=== PATIENT | female | born 1990 | race Caucasian/White ===

== ENCOUNTER 2016-09-22 14:25 | Emergency (ER) | payer OTHER ==
[~2016-09-22] VITALS: Ht 165.1 cm; Wt 86.0 kg
[~2016-09-22 14:25] MED LIST: PRENTAB26 PO; SERT-234 PO
[2016-09-22 14:28] VITALS: TEMP 36.9; Ht 165.1 cm; Wt 86.0 kg
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
[2016-09-22 15:02] LABS: HEMATOCRIT 34.1 % (37-47); MEAN CELL VOLUME 80.2 fL (80-100); MEAN CORPUSCULAR HEMOGLOBIN 25.6 pg (25-34); MEAN PLATELET VOLUME 9.5 fL (7.4-10.4); PLATELET COUNT 328 K/uL (130-400); RED BLOOD COUNT 4.25 M/uL (4.2-5.4); WHITE BLOOD COUNT 11.13 K/uL (4.8-10.8)
[2016-09-22 15:17] LABS: BUN/CREATININE RATIO 17.5 (10-20); CALCIUM 8.6 mg/dl (8.5-10.1); CREATININE 0.62 mg/dl (0.60-1.20); POTASSIUM 3.8 mmol/L (3.5-5.1)
[2016-09-22 15:19] LABS: ALB/GLOB RATIO 0.7 (0.9-2); MANUAL MICROSCOPIC REQUIRED? NO; REVIEW REQ? NO; URINE APPEARANCE CLOUDY (CLEAR); URINE BILIRUBIN NEG (NEG); URINE COLOR YELLOW; URINE EPITHELIAL CELL AUTO >30 /lpf (0-5); URINE NITRITE NEG (NEG); URINE SPECIFIC GRAVITY 1.008 (1.000-1.030); UROBILINOGEN NEG (NEG); ZZUR CULT IF INDIC CLEAN CATCH YES
[2016-09-22 15:28] LABS: BASO % 0.4 %; BASO ABS # 0.04 K/uL (0-0.2); COMPLETE YES; EOS % 2.9 %; IG% 0.2 %; LYMPH % 25.4 %; LYMPH ABS # 2.83 K/uL (1.2-3.4); MONO % 6.8 %; NEUT % 64.3 %
[2016-09-22 16:59] VITALS: BP 115/65; PULSE 76; O2SAT 96
[2016-09-22] MEDS ORDERED: NITR1CAP16 PO (17:02)
[2016-09-26] MEDS ORDERED: SERT1TAB88 PO (15:14)
== END 2016-09-22 17:13 | disposition home or self-care (01) ==
LOC: C.EDB 14:28 → C.EDC 17:13
DX: N39.0 Urinary tract infection, site not specified (principal); D64.9 Anemia, unspecified; R19.7 Diarrhea, unspecified; R19.5 Other fecal abnormalities; Z93.3 Colostomy status

== ENCOUNTER 2016-09-24 17:50 | Inpatient (IN) | payer OTHER ==
[~2016-09-24] VITALS: Ht 165.1 cm; Wt 85.7 kg
[~2016-09-24 17:50] MED LIST changes: +NITR1CAP16 PO; -PRENTAB26 PO; -SERT-234 PO
[2016-09-24] MEDS ORDERED: ONDANSETRON INJ 2 MG/ML 2 ML VIAL IV STA (21:03)
--- NOTE | 2016-09-24 21:12 | EMERGENCY ROOM VISIT NOTE ---
ED Visit Note First contact with patient: 20:32 Resident Physician Supervision Note: I was present with Dr. Max Greer during the history and exam. I discussed the case with the resident and agree with the findings and plan as documented in the note. Any exceptions or clarifications are listed here: None Documented By: Sina Calloway
[2016-09-24 21:20] LABS: BASO % 0.2 %; BASO ABS # 0.02 K/uL (0-0.2); COMPLETE YES; EOS % 2.2 %; IG% 0.1 %; LYMPH % 23.5 %; LYMPH ABS # 2.53 K/uL (1.2-3.4); MEAN CELL VOLUME 81.1 fL (80-100); MEAN CORPUSCULAR HEMOGLOBIN 26.5 pg (25-34); MEAN CORPUSCULAR HGB CONC 32.7 g/dl (32-36); MEAN PLATELET VOLUME 9.7 fL (7.4-10.4); PLATELET COUNT 326 K/uL (130-400); RED BLOOD COUNT 4.07 M/uL (4.2-5.4); WHITE BLOOD COUNT 10.75 K/uL (4.8-10.8)
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
[2016-09-24 21:45] LABS: ALT/SGPT 17 U/L (12-78); BLOOD UREA NITROGEN 9 mg/dl (7-18); BUN/CREATININE RATIO 13.7 (10-20); CALCIUM 8.7 mg/dl (8.5-10.1); CARBON DIOXIDE 27 mmol/L (21-32); CHLORIDE 104 mmol/L (98-107); CREATININE 0.68 mg/dl (0.60-1.20); GLUCOSE 75 mg/dl (70-99); POTASSIUM 3.5 mmol/L (3.5-5.1); SODIUM 139 mmol/L (136-145)
[2016-09-24 21:48] LABS: ALKALINE PHOSPHATASE 84 U/L (45-117); AST/SGOT 12 U/L (15-37)
[2016-09-24] MEDS ORDERED: KETOROLAC TROMETHAMINE 30 MG/ML VIAL IV STA (21:48)
[2016-09-24 22:18] LABS: URINE APPEARANCE CLOUDY (CLEAR); URINE BILIRUBIN NEG (NEG); URINE COLOR YELLOW; URINE EPITHELIAL CELL AUTO >30 /lpf (0-5); URINE NITRITE NEG (NEG); URINE SPECIFIC GRAVITY 1.008 (1.000-1.030); UROBILINOGEN NEG (NEG); ZZUR CULT IF INDIC CLEAN CATCH YES
[2016-09-24 22:27] LABS: MANUAL MICROSCOPIC REQUIRED? NO; REVIEW REQ? NO
[2016-09-24] MEDS ORDERED: LEVAQUIN 750MG / 150ML D5W IV ONE (23:30)
[2016-09-24] MEDS ORDERED: OPTIRAY 320 IV PRN (23:45)
[2016-09-25] MEDS ORDERED: HYDROmorphone INJ 0.5 MG/0.5 ML SYR IV STA (00:52)
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
[2016-09-25] MEDS ORDERED: ONDANSETRON INJ 2 MG/ML 2 ML VIAL IV PRN (02:00)
[2016-09-25] MEDS ORDERED: MAGNESIUM HYDROXIDE SUSP 30 ML UDC PO PRN (02:00)
[2016-09-25] MEDS ORDERED: ACETAMINOPHEN 325 MG TAB PO PRN (02:00)
[2016-09-25] MEDS ORDERED: ALUMINUM/MAGNESIUM/SIMETH (MAALOX MAX) 30 ML UDC PO PRN (02:00)
[2016-09-25] MEDS ORDERED: KETOROLAC TROMETHAMINE 15 MG/ML VIAL IM PRN (02:15)
[2016-09-25 02:31] VITALS: O2SAT 100
[2016-09-25 02:40] VITALS: Ht 165.1 cm; Wt 85.7 kg
[2016-09-25] MEDS ORDERED: POLYETHYLENE (MIRALAX) 17 GM PACK PO PRN (03:00)
[2016-09-25] MEDS: SODIUM CHLORIDE 0.9% 1000ML 1,000 ML IV SCH ×2 (03:09→14:07)
[2016-09-25] MEDS: KETOROLAC TROMETHAMINE 15 MG/ML VIAL IV. PRN ×2 (04:30→14:09)
--- NOTE | 2016-09-25 07:24 | DIAGNOSTIC IMAGING REPORT ---
CT OF THE ABDOMEN AND PELVIS WITH CONTRAST CLINICAL HISTORY: Acute abdominal pain. COMPARISON STUDY: CT of the abdomen and pelvis October 18, 2015. TECHNIQUE: Following IV administration of 115 mL of Optiray-320, axial images of the abdomen and pelvis were obtained from the lung bases to the proximal femurs. Images were reviewed in the axial, sagittal, and coronal planes. IV contrast was administered without complication. Oral contrast was administered. CT DOSE: 629.72 mGy.cm FINDINGS: Lung bases are clear. There is no pneumatosis, free air or portal venous gas. The liver, spleen, right kidney and pancreas are normal. 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 There is no hydronephrosis. A left lower quadrant descending end colostomy is noted. There is a rectosigmoid stump. There is moderate wall thickening of the mid to distal descending colon including the portion of the colon within the ostomy. There is moderate adjacent infiltration and mild lymphadenopathy which is likely reactive. There is no free air or abscess. There is also mild wall thickening of the rectosigmoid stump. A 4.2 cm cystic right ovarian lesion is present. The appendix is normal. Cannulated screws within the proximal left femur noted. There is flattening right femoral head with right hip joint space narrowing and cystic change within the right femoral head. IMPRESSION: 1. Moderate wall thickening and associated infiltration and fluid involving the mid to distal descending colon, including the portion of the colon within the left lower quadrant end colostomy. The findings represent a moderate to severe nonspecific colitis. Differential considerations include an infectious etiology or inflammatory etiology such as inflammatory bowel disease. Mild wall thickening of the rectosigmoid stump. 2. No bowel obstruction. 3. Normal appendix. 4. 4.2 cm right ovarian cyst. 5. Flattening of the right femoral head with marked right hip joint space narrowing and cystic change within the right femur. Electronically signed by: Sridhar Mcneil M.D. 09/25/2016 7:22 AM Dictated Date/Time: 09/25/2016 7:14 AM
[2016-09-25 07:44] VITALS: BP 81/43; PULSE 70; TEMP 36.7; O2SAT 98
[2016-09-25 07:46] VITALS: BP 88/56
[2016-09-25] MEDS ORDERED: METRONIDAZOLE / NSS 500 MG in PREMIXED NSS 100 ML IV SCH (09:00)
[2016-09-25 16:00] VITALS: BP 108/75; PULSE 70; TEMP 36.5; O2SAT 98
--- NOTE | 2016-09-25 17:21 | Discharge Instructions ---
Discharge Instructions Date of Service Sep 25, 2016. Admission Reason for Admission: Bloody Diarrhea Discharge Discharge Diagnosis / Problem: Ulcerative colitis Discharge Goals Goal(s): Learn about illness Activity Recommendations Activity Limitations: resume your previous activity Lifting Limitations: none Exercise/Sports Limitations: none May Resume Sexual Activity: when tolerated Driving or Machine Use: no limitations . Instructions / Follow-Up Instructions / Follow-Up Follow up with GI as outpatient Current Hospital Diet Patient's current hospital diet: AHA Diet (Heart Healthy), Low Sodium Diet (2gm Na) Discharge Diet Recommended Diet: Low Sodium Diet (2gm Na) Pending Studies Studies pending at discharge: no Medical Emergencies . Who to Call and When: Medical Emergencies: If at any time you feel your situation is an emergency, please call 911 immediately. . Non-Emergent Contact Non-Emergency issues call your: Primary Care Provider Call Non-Emergent contact if: you have a fever, your pain is not controlled . Past History Medical & Surgical History: (1) UTI (urinary tract infection) (2) Bloody diarrhea . "Provider Documentation" section prepared by Moreno Juan. VTE Core Measure Inpt VTE Proph given/why not?: SCD's, Contraindicated
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
[2016-09-25 17:39] VITALS: BP 108/75; PULSE 70; TEMP 36.5; O2SAT 98
[2016-09-26] MEDS ORDERED: LEVOFLOXACIN / D5W 750 MG in PREMIXED IN D5W 150 ML IV SCH
[2016-09-26] MEDS ORDERED: LEVOFLOXACIN 500 MG TAB PO SCH (11:00)
[2016-09-26] MEDS ORDERED: SERT1TAB88 PO (15:14)
== END 2016-09-25 19:10 | disposition home or self-care (01) | DRG 392 ==
LOC: ENRESERVTM → ENRESERVDT → C.EDB 17:52 → C.3E 09-25 02:00
PROVIDERS: ADMIT Hospitalist; ATTEND Hospitalist
DX: R19.7 Diarrhea, unspecified (principal); N39.0 Urinary tract infection, site not specified; Z93.3 Colostomy status; Z87.891 Personal history of nicotine dependence; Z83.3 Family history of diabetes mellitus; Z82.49 Family history of ischemic heart disease and other diseases of the circulatory system

== ENCOUNTER 2016-09-26 15:52 | Observation (INO) | payer OTHER ==
[~2016-09-26] VITALS: Ht 165.1 cm; Wt 85.0 kg
[~2016-09-26 15:52] MED LIST changes: -NITR1CAP16 PO; +SERT1TAB88 PO
[2016-09-26] MEDS ORDERED: SODIUM CHLORIDE 0.9% 1000ML 1,000 ML IV STA (17:32)
[2016-09-26] MEDS ORDERED: ONDANSETRON INJ 2 MG/ML 2 ML VIAL IV STA (17:32)
[2016-09-26] MEDS ORDERED: HYDROmorphone INJ 1 MG/ML SYR IV STA (17:32)
[2016-09-26 17:46] LABS: HEMATOCRIT 33.4 % (37-47); MEAN CELL VOLUME 79.3 fL (80-100); MEAN CORPUSCULAR HEMOGLOBIN 25.7 pg (25-34); MEAN CORPUSCULAR HGB CONC 32.3 g/dl (32-36); MEAN PLATELET VOLUME 9.7 fL (7.4-10.4); PLATELET COUNT 330 K/uL (130-400); RED BLOOD COUNT 4.21 M/uL (4.2-5.4); WHITE BLOOD COUNT 10.62 K/uL (4.8-10.8)
[2016-09-26 18:02] LABS: MANUAL MICROSCOPIC REQUIRED? YES; URINE APPEARANCE CLEAR (CLEAR); URINE BILIRUBIN NEG (NEG); URINE COLOR YELLOW; URINE NITRITE NEG (NEG); UROBILINOGEN NEG (NEG)
[2016-09-26 18:03] LABS: PREG INTERNAL NEGATIVE QC NEG CLEAR BACKGROUND; PREG INTERNAL POSITIVE QC POS CONTROL LINE
[2016-09-26 18:04] LABS: ALT/SGPT 14 U/L (12-78); BLOOD UREA NITROGEN 5 mg/dl (7-18); BUN/CREATININE RATIO 9.3 (10-20); CALCIUM 8.8 mg/dl (8.5-10.1); CARBON DIOXIDE 23 mmol/L (21-32); CHLORIDE 105 mmol/L (98-107); CREATININE 0.58 mg/dl (0.60-1.20); GLUCOSE 81 mg/dl (70-99); POTASSIUM 3.6 mmol/L (3.5-5.1); SODIUM 138 mmol/L (136-145)
[2016-09-26 18:06] LABS: REVIEW REQ? NO
[2016-09-26 18:07] LABS: ALKALINE PHOSPHATASE 66 U/L (45-117); AST/SGOT 10 U/L (15-37)
[2016-09-26 18:08] LABS: BASO % 0.1 %; BASO ABS # 0.01 K/uL (0-0.2); COMPLETE YES; DOHLE BODIES 1+; EOS % 1.6 %; IG% 0.2 %; LYMPH % 17.8 %; LYMPH ABS # 1.89 K/uL (1.2-3.4); MONO % 8.2 %; NEUT % 72.1 %
[2016-09-26 18:14] LABS: URINE BACTERIA 1+ (NEG); URINE RBC 0-4 /hpf (0-4); ZZUR CULT IF INDIC CLEAN CATCH YES
[2016-09-26] MEDS ORDERED: CEFTRIAXONE SOD INJ 1 GM ADDVIAL IV STA (18:31)
[2016-09-26] MEDS ORDERED: PANTOprazole INJ 80 MG in DEXTROSE 5% 100ML IV SCH (19:30)
[2016-09-26] MEDS ORDERED: PANTOprazole INJ 40 MG in DEXTROSE 5% 100ML IV SCH (19:45)
[2016-09-26] MEDS ORDERED: ACETAMINOPHEN 325 MG TAB PO PRN (21:00)
[2016-09-26] MEDS ORDERED: ONDANSETRON INJ 2 MG/ML 2 ML VIAL IV PRN (21:00)
[2016-09-26] MEDS ORDERED: ZOLPIDEM TARTRATE 5 MG TAB PO PRN (21:00)
[2016-09-26] MEDS ORDERED: IV FLUIDS COMPLETED PRN (21:45)
[2016-09-26] MEDS: MoRPHine SULFATE 4 MG/ML 1 ML CARP\\VIAL IV PRN (21:47)
[2016-09-26 21:51] LABS: HEMATOCRIT 30.6 % (37-47)
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
[2016-09-26 22:14] VITALS: BP 101/65; PULSE 65; TEMP 37.3; O2SAT 97; Ht 165.1 cm; Wt 85.0 kg
--- NOTE | 2016-09-26 22:24 | History and Physical ---
History & Physical Date & Time of Service: Sep 26, 2016 at 22:25 Chief Complaint: Blood In Stool, Intense Abdominal Pain Primary Care Physician: Zoltan Khan MD History of Present Illness Source: patient The patient is a 26-year-old female who presents to the emergency department with complaint of abdominal pain. She had been admitted into the hospital on September 25, and was advised to have a colonoscopy by Dr. Fraser, however, the patient reported that she had to go home and would get testing done as an outpatient. While in the hospital, her symptoms have resolved. She then developed worsening abdominal discomfort after discharge, and noted blood in stool through her colostomy, and return to the emergency department for assessment tonight. Past Medical/Surgical History Medical Problems: (1) Bronchitis Status: Resolved Surgical Problems: (1) Colostomy in place Status: Chronic Family History Diabetes mellitus Hypertension Social History Smoking Status: Unknown if Ever Smoked Smokeless Tobacco Use: No Alcohol Use: none Drug Use: none Marital Status: in relationship Occupational Status: employed Multi-Drug Resistant Organisms History of MDRO: No Allergies Coded Allergies: Sulfa Antibiotics (Verified Allergy, Unknown, HIVES, 09/24/16) Home Medications Scheduled Sertraline HCl (Sertraline HCl), 75 MG PO DAILY Review of Systems The patient denies chest pain, palpitations, shortness of breath, cough, lower extremity swelling, vision change, hearing change, sore throat, chills, sweats, weight change, fatigue, blood in urine or stool, dysuria, urinary frequency or urgency, lightheadedness, dizziness, headache, memory loss, rash, abnormal bruising or bleeding, imbalance, focal or generalized weakness, numbness or tingling in arms or legs, arthralgias or myalgias, back or neck pain, night sweats, or allergy symptoms. The review of systems is otherwise negative other than for that already noted above, and at least 10 systems have been reviewed. Physical Exam Vital Signs Date Time Temp Pulse Resp B/P Pulse Ox O2 Delivery O2 Flow Rate FiO2 09/26/16 22:10 90 12 108/78 97 09/26/16 21:00 98 16 118/78 98 09/26/16 19:00 98 14 118/74 98 09/26/16 18:45 84 15 101/59 100 Room Air 09/26/16 16:08 37.1 108 18 118/69 100 Room Air The patient is awake, well-developed and adequately nourished, alert and oriented 3, normocephalic and atraumatic, lying in bed and in no acute distress. HEENT--PERRL, EOMI, mucous membranes and oropharynx dry. Neck--supple, no JVD or bruits, thyroid normal, trachea midline, no adenopathy. Heart--normal S1 and S2, no extra beats, no murmurs, rubs or gallops. Lungs--clear bilaterally with good air movement, no respiratory distress, no accessory muscle use. Abdomen--normal bowel sounds and soft, generalized vague tenderness, nondistended, no hernias or masses, no organomegaly. Extremities--no cyanosis, clubbing or edema. There are good distal pulses b/l. Dermatologic--normal skin turgor, normal color, warm and dry, no abnormal lymph nodes, no rash. Neurologic--cranial nerves II through XII grossly intact, motor and sensory examination normal. Rheumatologic--normal range of motion, nontender, muscles and joints. Psychiatric--normal affect. Diagnostics Laboratory Results Results Past 24 Hours Test 09/26/16 00:00 09/26/16 17:15 09/26/16 21:38 Range/Units Urine Color YELLOW Urine Appearance CLEAR CLEAR Urine pH 6.0 4.5-7.5 Urine Specific [place] 1.010 1.000-1.030 Urine Protein NEG NEG Urine Glucose (UA) NEG NEG Urine Ketones 3+ NEG Urine Occult Blood 1+ NEG Urine Nitrite NEG NEG Urine Bilirubin NEG NEG Urine Urobilinogen NEG NEG Urine Leukocyte Esterase LARGE NEG Urine RBC 0-4 0-4 /hpf Urine WBC 10-30 0-5 /hpf Urine Epithelial Cells 5-10 0-5 /lpf Urine Bacteria 1+ NEG Urine Test NEG NEG White Blood Count 10.62 4.8-10.8 K/uL Red Blood Count 4.21 4.2-5.4 M/uL Hemoglobin 10.8 9.7 12.0-16.0 g/dL Hematocrit 33.4 30.6 37-47 % Mean Corpuscular Volume 79.3 80-100 fL Mean Corpuscular Hemoglobin 25.7 25-34 pg Mean Corpuscular Hemoglobin Concent 32.3 32-36 g/dl Platelet Count 330 130-400 K/uL Mean Platelet Volume 9.7 7.4-10.4 fL Neutrophils (%) (Auto) 72.1 % Lymphocytes (%) (Auto) 17.8 % Monocytes (%) (Auto) 8.2 % Eosinophils (%) (Auto) 1.6 % Basophils (%) (Auto) 0.1 % Neutrophils # (Auto) 7.66 1.4-6.5 K/uL Lymphocytes # (Auto) 1.89 1.2-3.4 K/uL Monocytes # (Auto) 0.87 0.11-0.59 K/uL Eosinophils # (Auto) 0.17 0-0.5 K/uL Basophils # (Auto) 0.01 0-0.2 K/uL RDW Standard Deviation 40.5 36.4-46.3 fL RDW Coefficient of Variation 14.2 11.5-14.5 % Immature Granulocyte % (Auto) 0.2 % Immature Granulocyte # (Auto) 0.02 0.00-0.02 K/uL Dohle Bodies 1+ Sodium Level 138 136-145 mmol/L Potassium Level 3.6 3.5-5.1 mmol/L Chloride Level 105 98-107 mmol/L Carbon Dioxide Level 23 21-32 mmol/L Anion Gap 10.0 3-11 mmol/L Blood Urea Nitrogen 5 7-18 mg/dl Creatinine 0.58 0.60-1.20 mg/dl Est Creatinine Clear Calc Drug Dose 159.6 ml/min Estimated GFR () 148.5 Estimated GFR (Non- 128.1 BUN/Creatinine Ratio 9.3 10-20 Random Glucose 81 70-99 mg/dl Calcium Level 8.8 8.5-10.1 mg/dl Total Bilirubin 0.4 0.2-1 mg/dl Direct Bilirubin < 0.1 0-0.2 mg/dl Aspartate Amino Transf (AST/SGOT) 10 15-37 U/L Alanine Aminotransferase (ALT/SGPT) 14 12-78 U/L Alkaline Phosphatase 66 45-117 U/L Total Protein 7.5 6.4-8.2 gm/dl Albumin 3.0 3.4-5.0 gm/dl Lipase 74 73-393 U/L Microbiology Results 09/26/16 Urine Culture, Received Pending Diagnostic Radiology Patient Name: TOBIN NASH Unit Number: [id number] Dictated: 09/25/16713 Transcribed: 09/25/16713 JA Printed Date/Time: [~ rep prt dt]/[~ rep prt tm] [~ rep ct labl] - [~ rep ct ivnm] [facility] [place] [address] Dictated: 09/25/16713 Transcribed: 09/25/16713 JA Printed Date/Time: [~ rep prt dt]/[~ rep prt tm] [~ rep ct labl] - [~ rep ct ivnm] CT OF THE ABDOMEN AND PELVIS WITH CONTRAST CLINICAL HISTORY: Acute abdominal pain. COMPARISON STUDY: CT of the abdomen and pelvis October 18, 2015. TECHNIQUE: Following IV administration of 115 mL of Optiray-320, axial images of the abdomen and pelvis were obtained from the lung bases to the proximal femurs. Images were reviewed in the axial, sagittal, and coronal planes. IV contrast was administered without complication. Oral contrast was administered. CT DOSE: 629.72 mGy.cm FINDINGS: Lung bases are clear. There is no pneumatosis, free air or portal venous gas. The liver, spleen, right kidney and pancreas are normal. 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 There is no hydronephrosis. A left lower quadrant descending end colostomy is noted. There is a rectosigmoid stump. There is moderate wall thickening of the mid to distal descending colon including the portion of the colon within the ostomy. There is moderate adjacent infiltration and mild lymphadenopathy which is likely reactive. There is no free air or abscess. There is also mild wall thickening of the rectosigmoid stump. A 4.2 cm cystic right ovarian lesion is present. The appendix is normal. Cannulated screws within the proximal left femur noted. There is flattening right femoral head with right hip joint space narrowing and cystic change within the right femoral head. IMPRESSION: 1. Moderate wall thickening and associated infiltration and fluid involving the mid to distal descending colon, including the portion of the colon within the left lower quadrant end colostomy. The findings represent a moderate to severe nonspecific colitis. Differential considerations include an infectious etiology or inflammatory etiology such as inflammatory bowel disease. Mild wall thickening of the rectosigmoid stump. 2. No bowel obstruction. 3. Normal appendix. 4. 4.2 cm right ovarian cyst. 5. Flattening of the right femoral head with marked right hip joint space narrowing and cystic change within the right femur. Electronically signed by: Sridhar Mcneil M.D. 09/25/2016 7:22 AM Dictated Date/Time: 09/25/2016 7:14 AM The status of this report is Signed. Draft = Not yet reviewed or approved by Radiologist. Signed = Reviewed and approved by Radiologist. <AttendingPhy>Lalo Vega M.D.</AttendingPhy> <FamilyPhy>Zoltan Khan MD</FamilyPhy> <PrimaryPhy>Zoltan Khan MD</PrimaryPhy> <UnitNumber> [id number]</UnitNumber> <VisitNumber>[id number]</VisitNumber> <PatientName> TOBIN NASH</PatientName> <DateOfBirth>1990</DateOfBirth> <Location> [facility]</Location> <ServiceDate>09/24/16</ServiceDate> <MNE>ESINDI</MNE> < OrderingPhy>Max Greer MD</OrderingPhy> <OrderingPhyMNE>f rep ord dr yates</ OrderingPhyMNE> <DictatingPhyMNE>f rep dict dr yates</DictatingPhyMNE> <CCListMNE> f rep ct trudy</CCListMNE> <AdmittingPhyMNE>f pt admit dr yates</AdmittingPhyMNE> < AttendingPhyMNE>f pt attend dr yates</AttendingPhyMNE> <ConsultingPhyMNE>f pt consult dr yates</ConsultingPhyMNE> <FamilyPhyMNE>f pt fam dr yates</FamilyPhyMNE> <OtherPhyMNE>f pt other dr yates</OtherPhyMNE> < PrimaryPhyMNE>f pt prim care dr yates</PrimaryPhyMNE> <ReferringPhyMNE>f pt referring dr yates</ReferringPhyMNE> Impression Assessment and Plan Moderate to severe nonspecific colitis with hematochezia--the patient will be admitted to the medical floor. She'll be kept nothing by mouth and placed on IV fluids. We'll consult Dr. Fraser, from gastroenterology, who has seen her on September 25, and who had recommended colonoscopy at that time, to see if that continues to be his recommendation. We'll place on Zofran 4 mg IV every 6 hours when necessary, Protonix 40 mg IV daily, and morphine sulfate 2-4 mg IV every 2 hours when necessary. Depression--continue sertraline 75 mg by mouth daily. Level of Care Med/Surg Advanced Directives Existing Advance Directive: No Existing Living Will: No Existing Power of Safety Trainer: No Resuscitation Status FULL RESUSCITATION VTE Prophylaxis VTE Risk Assessment Done? Y/N: Yes Risk Level: Low Given or contraindicated: SCD's Social Service Consult None Apply
[2016-09-26] MEDS: NSS + 20MEQ KCL 1000ML 1,000 ML IV SCH (23:39)
[2016-09-26 23:40] VITALS: BP 107/67; PULSE 87; TEMP 37; O2SAT 97
[2016-09-27] MEDS: MoRPHine SULFATE 4 MG/ML 1 ML CARP\\VIAL IV PRN ×7 (00:37→22:01)
[2016-09-27] MEDS: PANTOprazole INJ 40 MG in DEXTROSE 5% 100ML IV SCH ×5 (00:53→20:36)
[2016-09-27 03:13] LABS: HEMATOCRIT 29.2 % (37-47); MEAN CELL VOLUME 79.6 fL (80-100); MEAN CORPUSCULAR HEMOGLOBIN 25.3 pg (25-34); MEAN CORPUSCULAR HGB CONC 31.8 g/dl (32-36); MEAN PLATELET VOLUME 8.8 fL (7.4-10.4); PLATELET COUNT 290 K/uL (130-400); RED BLOOD COUNT 3.67 M/uL (4.2-5.4); WHITE BLOOD COUNT 9.23 K/uL (4.8-10.8)
[2016-09-27 03:24] LABS: INR 1.1 (0.9-1.1); PARTIAL THROMBOPLASTIN RATIO 1.2; PROTHROMBIN TIME (PATIENT) 11.4 SECONDS (9.0-12.0)
[2016-09-27 03:37] LABS: ALKALINE PHOSPHATASE 54 U/L (45-117); ALT/SGPT 11 U/L (12-78); AST/SGOT 8 U/L (15-37); BLOOD UREA NITROGEN 3 mg/dl (7-18); BUN/CREATININE RATIO 4.8 (10-20); CALCIUM 7.8 mg/dl (8.5-10.1); CARBON DIOXIDE 25 mmol/L (21-32); CHLORIDE 109 mmol/L (98-107); CREATININE 0.65 mg/dl (0.60-1.20); GLUCOSE 84 mg/dl (70-99); POTASSIUM 3.5 mmol/L (3.5-5.1); SODIUM 141 mmol/L (136-145)
[2016-09-27 03:52] LABS: BASO % 0.2 %; BASO ABS # 0.02 K/uL (0-0.2); COMPLETE YES; EOS % 2.5 %; IG% 0.1 %; LYMPH % 34.1 %; LYMPH ABS # 3.15 K/uL (1.2-3.4); MONO % 11.3 %; NEUT % 51.8 %
[2016-09-27 07:07] VITALS: BP 108/66; PULSE 71; TEMP 36.9; O2SAT 95
[2016-09-27] MEDS: SERTRALINE HCL 50 MG TAB PO SCH (09:11)
[2016-09-27] MEDS: NSS + 20MEQ KCL 1000ML 1,000 ML IV SCH ×2 (09:11→18:35)
[2016-09-27 09:53] LABS: HEMATOCRIT 28.4 % (37-47)
--- NOTE | 2016-09-27 13:28 | Hospitalist Progress Note ---
Hospitalist Progress Note Date of Service Sep 27, 2016. Subjective Pt evaluation today including: conversation w/ patient, physical exam, chart review Medications Medications (Trade) Dose Ordered Sig/Lee Route Start Time Stop Time Status Last Admin Dose Admin Sodium Chloride (Nss 1000ml) 1,000 ml @ 999 mls/hr Q1H1M STAT IV 09/26/16 17:32 09/26/16 18:32 DC 09/26/16 17:46 999 MLS/HR Hydromorphone HCl (Dilaudid Inj) 1 mg NOW STAT IV 09/26/16 17:32 09/26/16 17:33 DC 09/26/16 17:47 1 MG Ondansetron HCl (Zofran Inj) 4 mg NOW STAT IV 09/26/16 17:32 09/26/16 17:33 DC 09/26/16 17:46 4 MG Ceftriaxone Sodium 1 gm 1 gm NOW STAT IV 09/26/16 18:31 09/26/16 18:32 DC 09/26/16 18:44 1 GM Pantoprazole Sodium 80 mg/ Dextrose 120 ml @ 480 mls/hr TODAY@1930 IV 09/26/16 19:30 09/26/16 19:44 DC 09/26/16 19:37 480 MLS/HR Pantoprazole Sodium/Dextrose (Protonix Inj/D5 100ml) 100 ml @ 20 mls/hr Q5H IV 09/26/16 19:45 09/27/16 00:44 DC 09/26/16 19:52 20 MLS/HR Sertraline HCl (Zoloft Tab) 75 mg QAM PO 09/27/16 09:00 10/27/16 08:59 09/27/16 09:11 75 MG Ondansetron HCl 4 mg 4 mg Q6H PRN IV 09/26/16 21:00 10/26/16 20:59 09/26/16 21:46 4 MG Potassium Chloride/Sodium Chloride (Nss + 20meq KCl 1000ml) 1,000 ml @ 100 mls/hr Q10H IV 09/26/16 23:00 10/26/16 22:59 09/27/16 09:11 100 MLS/HR Morphine Sulfate 4 mg 4 mg Q2H PRN IV 09/26/16 21:00 10/10/16 20:59 09/27/16 11:04 4 MG Pantoprazole Sodium/Dextrose (Protonix Inj/D5 100ml) 100 ml @ 20 mls/hr Q5H IV 09/27/16 01:00 10/27/16 00:59 09/27/16 11:03 20 MLS/HR Objective Vital Signs Date Time Temp Pulse Resp B/P Pulse Ox O2 Delivery O2 Flow Rate FiO2 09/27/16 08:00 Room Air 09/27/16 07:07 36.9 71 16 108/66 95 Room Air 09/26/16 23:45 Room Air 09/26/16 23:40 37.0 87 16 107/67 97 Room Air 09/26/16 22:14 37.3 65 20 101/65 97 Room Air 09/26/16 22:10 90 12 108/78 97 09/26/16 21:00 98 16 118/78 98 09/26/16 19:00 98 14 118/74 98 09/26/16 18:45 84 15 101/59 100 Room Air 09/26/16 16:08 37.1 108 18 118/69 100 Room Air Physical Exam General Appearance: WD/WN, no apparent distress Eyes: normal inspection, PERRL ENT: normal ENT inspection, hearing grossly normal Neck: supple, no adenopathy, thyroid normal Respiratory/Chest: chest non-tender, lungs clear, normal breath sounds Cardiovascular: regular rate, rhythm, no edema, no gallop Abdomen: normal bowel sounds, soft Extremities: normal range of motion Neurologic/Psychiatric: political science professor II-XII nml as tested, oriented x 3 Skin: normal color Laboratory Results Last 24 Hours Test 09/26/16 17:15 09/26/16 21:38 09/27/16 03:00 09/27/16 09:39 White Blood Count 10.62 K/uL 9.23 K/uL Red Blood Count 4.21 M/uL 3.67 M/uL Hemoglobin 10.8 g/dL 9.7 g/dL 9.3 g/dL 9.0 g/dL Hematocrit 33.4 % 30.6 % 29.2 % 28.4 % Mean Corpuscular Volume 79.3 fL 79.6 fL Mean Corpuscular Hemoglobin 25.7 pg 25.3 pg Mean Corpuscular Hemoglobin Concent 32.3 g/dl 31.8 g/dl Platelet Count 330 K/uL 290 K/uL Mean Platelet Volume 9.7 fL 8.8 fL Neutrophils (%) (Auto) 72.1 % 51.8 % Lymphocytes (%) (Auto) 17.8 % 34.1 % Monocytes (%) (Auto) 8.2 % 11.3 % Eosinophils (%) (Auto) 1.6 % 2.5 % Basophils (%) (Auto) 0.1 % 0.2 % Neutrophils # (Auto) 7.66 K/uL 4.78 K/uL Lymphocytes # (Auto) 1.89 K/uL 3.15 K/uL Monocytes # (Auto) 0.87 K/uL 1.04 K/uL Eosinophils # (Auto) 0.17 K/uL 0.23 K/uL Basophils # (Auto) 0.01 K/uL 0.02 K/uL RDW Standard Deviation 40.5 fL 40.5 fL RDW Coefficient of Variation 14.2 % 14.0 % Immature Granulocyte % (Auto) 0.2 % 0.1 % Immature Granulocyte # (Auto) 0.02 K/uL 0.01 K/uL Dohle Bodies 1+ Sodium Level 138 mmol/L 141 mmol/L Potassium Level 3.6 mmol/L 3.5 mmol/L Chloride Level 105 mmol/L 109 mmol/L Carbon Dioxide Level 23 mmol/L 25 mmol/L Anion Gap 10.0 mmol/L 7.0 mmol/L Blood Urea Nitrogen 5 mg/dl 3 mg/dl Creatinine 0.58 mg/dl 0.65 mg/dl Est Creatinine Clear Calc Drug Dose 159.6 ml/min 142.4 ml/min Estimated GFR () 148.5 143.0 Estimated GFR (Non- 128.1 123.4 BUN/Creatinine Ratio 9.3 4.8 Random Glucose 81 mg/dl 84 mg/dl Calcium Level 8.8 mg/dl 7.8 mg/dl Total Bilirubin 0.4 mg/dl 0.3 mg/dl Direct Bilirubin < 0.1 mg/dl < 0.1 mg/dl Aspartate Amino Transf (AST/SGOT) 10 U/L 8 U/L Alanine Aminotransferase (ALT/SGPT) 14 U/L 11 U/L Alkaline Phosphatase 66 U/L 54 U/L Total Protein 7.5 gm/dl 6.6 gm/dl Albumin 3.0 gm/dl 2.6 gm/dl Lipase 74 U/L Red Blood Cell Morphology Unremarkable Prothrombin Time 11.4 SECONDS Prothromb Time International Ratio 1.1 Activated Partial Thromboplast Time 32.4 SECONDS Partial Thromboplastin Ratio 1.2 Magnesium Level 2.0 mg/dl Assessment and Plan Moderate to severe nonspecific colitis with hematochezia--the patient will be admitted to the medical floor. She'll be kept nothing by mouth and placed on IV fluids. We'll consult Dr. Fraser, from gastroenterology, who has seen her on September 25, and who had recommended colonoscopy at that time, to see if that continues to be his recommendation. We'll place on Zofran 4 mg IV every 6 hours when necessary, Protonix 40 mg IV daily, and morphine sulfate 2-4 mg IV every 2 hours when necessary. Depression--continue sertraline 75 mg by mouth daily.
[2016-09-27 15:11] VITALS: BP 102/66; PULSE 109; TEMP 37.1; O2SAT 96
[2016-09-27 15:48] LABS: HEMATOCRIT 28.8 % (37-47)
[2016-09-27] MEDS ORDERED: LAVAGE SOLUTION 4000ML PO SCH (18:00)
[2016-09-27] MEDS ORDERED: NURSING VERBAL MED ORDER ONE (20:15)
[2016-09-27] MEDS: KETOROLAC TROMETHAMINE 30 MG/ML VIAL IV. PRN (20:36)
[2016-09-27 23:28] VITALS: BP 103/63; PULSE 85; TEMP 36.7; O2SAT 99
[2016-09-28] MEDS: PANTOprazole INJ 40 MG in DEXTROSE 5% 100ML IV SCH ×5 (01:31→22:15)
[2016-09-28] MEDS: MoRPHine SULFATE 4 MG/ML 1 ML CARP\\VIAL IV PRN ×6 (01:36→22:47)
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
[2016-09-28 03:31] LABS: HEMATOCRIT 25.7 % (37-47); MEAN CELL VOLUME 79.6 fL (80-100); MEAN CORPUSCULAR HEMOGLOBIN 26.3 pg (25-34); MEAN CORPUSCULAR HGB CONC 33.1 g/dl (32-36); MEAN PLATELET VOLUME 9.3 fL (7.4-10.4); PLATELET COUNT 263 K/uL (130-400); RED BLOOD COUNT 3.23 M/uL (4.2-5.4); WHITE BLOOD COUNT 8.03 K/uL (4.8-10.8)
[2016-09-28 03:36] LABS: INR 1.1 (0.9-1.1); PARTIAL THROMBOPLASTIN RATIO 1.3
[2016-09-28 03:43] LABS: BUN/CREATININE RATIO 4.6 (10-20); CALCIUM 7.4 mg/dl (8.5-10.1); CREATININE 0.57 mg/dl (0.60-1.20); MAGNESIUM 1.8 mg/dl (1.8-2.4); POTASSIUM 3.5 mmol/L (3.5-5.1)
[2016-09-28] MEDS: NSS + 20MEQ KCL 1000ML 1,000 ML IV SCH ×2 (04:18→16:11)
[2016-09-28 04:26] LABS: COMPLETE YES; EOSINOPHIL % 0.9 %; LYMPH ABS # 1.94 K/uL (1.2-3.4); LYMPHOCYTE % 24.1 %; VARIANT LYM ABS # 1.57 K/uL; VARIANT LYMPHOCYTE % 19.6 %
[2016-09-28 07:41] VITALS: BP 110/68; PULSE 65; TEMP 37; O2SAT 99
[2016-09-28 08:01] VITALS: BP 110/68; PULSE 65; PULSE 85; TEMP 37; O2SAT 99
[2016-09-28 08:04] VITALS: O2SAT 95; O2SAT 99
[2016-09-28 09:08] LABS: HEMATOCRIT 25.6 % (37-47)
[2016-09-28] MEDS: SERTRALINE HCL 50 MG TAB PO SCH (09:23)
--- NOTE | 2016-09-28 14:17 | Endo History and Physical ---
History & Physical Date of Service: Sep 28, 2016. Chief Complaint: GI bleed Referring Physician: Dr Vega History of Present Illness For colonoscopy Past Surgical History Hx Cardiac Surgery: No Hx Abdominal Surgery: No (colostomy, reconstruction surgery 2001) Hx Post-Op Nausea and Vomiting: No Hx Cancer Surgery: No Hx Thoracic Surgery: No Hx Orthopedic: No Hx Urinary Tract Surgery: No Social History Smoking Status: Unknown if Ever Smoked Smokeless Tobacco Use: No Hx Substance Use: Yes (see emr) Hx Alcohol Use: No Allergies Coded Allergies: Sulfa Antibiotics (Verified Allergy, Unknown, HIVES, 09/24/16) Current Medications Reported Home Medications Medications Dose Route/Sig Max Daily Dose Days Date Category Sertraline HCl 25 Mg Tab 75 Mg PO DAILY 09/22/16 Reported Vital Signs Weight (Kilograms): 85.000 Height (Feet): 5 Height (Inches): 5.00 Date Time Temp Pulse Resp B/P Pulse Ox O2 Delivery O2 Flow Rate FiO2 09/28/16 13:27 37.4 80 18 111/58 96 Room Air 77 09/28/16 08:04 99 Room Air 09/28/16 08:01 37.0 85 14 110/68 99 Room Air 65 09/28/16 07:45 Room Air 09/28/16 07:41 37.0 65 14 110/68 99 Room Air 09/27/16 23:28 36.7 85 15 103/63 99 Room Air 09/27/16 23:15 Room Air 09/27/16 15:45 Room Air 09/27/16 15:11 37.1 109 18 102/66 96 Room Air Physical Exam General Appearance: WD/WN Respiratory/Chest: Respiratory effort: no dyspnea Cardiovascular: Heart Auscultation: RRR Abdomen: Bowel Sounds: pertinent finding (colostomy) Assessment and Plan GI bleed for colonoscopy
[2016-09-28] MEDS ORDERED: MIDAZOLAM HCL 1 MG/ML 2ML VIAL ONE (14:27)
[2016-09-28] MEDS ORDERED: PROPOFOL IV EMULSION 10 MG/ML 20 ML VIAL IV ONE (14:28)
[2016-09-28] MEDS ORDERED: LIDOCAINE HCL 2% 2 ML VIAL (20MG/ML) ONE (14:28)
[2016-09-28] MEDS ORDERED: ONDANSETRON INJ 2 MG/ML 2 ML VIAL ONE (14:28)
--- NOTE | 2016-09-28 14:50 | Discharge Instructions ---
Endoscopy Patient Instructions Date / Procedure(s) Performed Sep 28, 2016. Allergy Information Coded Allergies: Sulfa Antibiotics (Verified Allergy, Unknown, HIVES, 09/24/16) Discharge Date / Findings Sep 28, 2016. Pancolitis Medication Instructions Restart Stopped Medication(s): resume meds Current Inpatient Medications Medications (Trade) Dose Ordered Sig/Lee Route Start Time Stop Time Status Last Admin Dose Admin Acetaminophen (Tylenol Tab) 650 mg Q4H PRN PO 09/26/16 21:00 10/26/16 20:59 Zolpidem Tartrate (Ambien Tab) 5 mg HSZ PRN PO 09/26/16 21:00 10/26/16 20:59 Sertraline HCl (Zoloft Tab) 75 mg QAM PO 09/27/16 09:00 10/27/16 08:59 09/28/16 09:23 75 MG Ondansetron HCl 4 mg 4 mg Q6H PRN IV 09/26/16 21:00 10/26/16 20:59 09/26/16 21:46 4 MG Potassium Chloride/Sodium Chloride (Nss + 20meq KCl 1000ml) 1,000 ml @ 100 mls/hr Q10H IV 09/26/16 23:00 10/26/16 22:59 09/28/16 04:18 100 MLS/HR Morphine Sulfate (MoRPHine SULFATE INJ) 2 mg Q2H PRN IV 09/26/16 21:00 10/10/16 20:59 Morphine Sulfate (MoRPHine SULFATE INJ) 4 mg Q2H PRN IV 09/26/16 21:00 10/10/16 20:59 09/28/16 11:42 4 MG Miscellaneous 1 ea 1 ea PRN PRN N/A 09/26/16 21:45 09/26/17 21:44 Pantoprazole Sodium/Dextrose (Protonix Inj/D5 100ml) 100 ml @ 20 mls/hr Q5H IV 09/27/16 01:00 10/27/16 00:59 09/28/16 11:44 20 MLS/HR Ketorolac Tromethamine (Toradol Inj) 30 mg Q6H PRN IV. 09/27/16 20:30 10/02/16 20:29 09/27/16 20:36 30 MG Provider Instructions Activity Restrictions - No exercising or heavy lifting for 24 hours. - Do not drink alcohol the day of the procedure. - Do not drive a car or operate machinery until the day after the procedure. - Do not make any important decisions or sign important papers in 24 hours after the procedure. Following Day: - Return to full activity which may include returning to work/school. Diet Start your diet with liquids and light foods (jello, soup, juice, toast). Then eat your usual diet if not nauseated. Treatment For Common After Affects For mild abdominal pain, bloating, or excessive gas: - Rest - Eat lightly - Lie on right side Follow-Up Information Follow-up with as scheduled Anesthesia Information What You Should Know You have had a procedure that required some medicine to reduce anxiety and discomfort. This treatment is called moderate sedation. After receiving the treatment, you may be sleepy, but you will be able to breathe on your own. The effects of the treatment may last for several hours. Follow these instructions along with Activity/Diet recommendations noted above: * Do NOT do anything where dizziness or clumsiness would be dangerous. * Rest quietly at home today, then you can be up and about tomorrow. * Have a responsible person stay with you the rest of today. * You may have had an I.V. today. If so, you may take the dressing off later today. Recommendations Call your doctor if: * Trouble breathing * Continuous vomiting for more than 24 hours * Temperature above 101 degrees * Severe abdominal pain or bloating * Pain not relieved by pain medicine ordered * There is increased drainage or redness from any incision * A large amount of rectal bleeding greater than 2-3 tablespoons. (If you had a polyp/s removed or have hemorrhoids, a small amount of blood - from the rectum is to be expected.) * You have any unanswered questions or concerns. IN THE EVENT OF A SERIOUS EMERGENCY, GO TO THE NEAREST EMERGENCY ROOM Your discharge instructions were prepared by provider Haile Dhaliwal. Patient Instructions Signature Page Luisa Prado Patient (or Guardian) Signature/Date: I have read and understand the instructions given to me by my caregivers. Caregiver/RN/Doctor Signature/Date: The above-named patient and/or guardian has received patient instructions on this date. + Original Patient Signature Page (only) stays with chart. Please make copy for patient.
[2016-09-28] MEDS ORDERED: FENTANYL CITRATE INJ 50 MCG/1 ML 2 ML VIAL ONE (14:57)
--- NOTE | 2016-09-28 15:05 | GI REPORT ---
Procedure Date: 09/28/2016 2:15 PM Procedure: Colonoscopy Indications: Gastrointestinal bleeding Medicines: Midazolam 2 mg IV, Zofran 4 mg IV, Propofol total dose 170 mg IV, Lidocaine 60 mg IV Complications: No immediate complications. Estimated Blood Loss: Estimated blood loss was minimal. Procedure: Pre-Anesthesia Assessment: - Prior to the procedure, a History and Physical was performed, and patient medications, allergies and sensitivities were reviewed. The patient's tolerance of previous anesthesia was reviewed. - The risks and benefits of the procedure and the sedation options and risks were discussed with the patient. All questions were answered and informed consent was obtained. - The risks and benefits of the procedure and the sedation options and risks were discussed with the patient. All questions were answered and informed consent was obtained. After I obtained informed consent, the scope was passed under direct vision. Throughout the procedure, the patient's blood pressure, pulse, and oxygen saturations were monitored continuously. The scope was introduced through the anus to the end of the rectal stump and then through the colostomy and advanced to the terminal ileum. The colonoscopy was performed without difficulty. The patient tolerated the procedure well. The quality of the bowel preparation was good. Findings: Diffuse severe inflammation characterized by erythema, friability, granularity and loss of vascularity was found in the entire colon. Biopsies were taken with a cold forceps for histology. Biopsies were taken with a cold forceps for histology from the rectum. Estimated blood loss was minimal. Biopsies were taken with a cold forceps in the sigmoid colon, in the descending colon, in the transverse colon and in the ascending colon for histology. Estimated blood loss was minimal. The terminal ileum appeared normal. Impression: - Diffuse severe inflammation was found in the entire examined colon secondary to pancolitis. Biopsied. - The examined portion of the ileum was normal. - Biopsies were taken with a cold forceps for histology in the sigmoid colon, in the descending colon, in the transverse colon and in the ascending colon. Recommendation: - [facility] care. Haile Dhaliwal M.D. Haile Dhaliwal MD 09/28/2016 3:04:39 PM This report has been signed electronically. Note Initiated On: 09/28/2016 2:15 PM I attest to the content of the Intraoperative Record and orders documented therein, exceptions below
[2016-09-28 15:20] VITALS: O2SAT 97
[2016-09-28 15:44] VITALS: BP 108/69; PULSE 77; TEMP 36.7; O2SAT 97
--- NOTE | 2016-09-28 15:48 | PROGRESS NOTE ---
DATE: 09/28/2016 The patient continues to be experiencing rectal bleeding and presented for endoscopic evaluation today after being admitted yesterday and prepped. The patient had her rectal stump examined first and it shows signs of diffuse inflammation. Random biopsies were obtained from the rectal stump. The exam was then continued through her left-sided colostomy. There were signs of active severe inflammation throughout the entire colon in a diffuse pattern. Biopsies were taken randomly throughout the colon. The findings were suggestive of ulcerative colitis. The terminal ileum was entered for about 10 cm and appeared normal endoscopically. A stool specimen was also obtained from the colon and sent for C. diff and bacterial pathogens. IMPRESSION: The patient has pancolitis, suggestive of ulcerative colitis. She will be started on IV Solu-Medrol 40 mg 3 times a day as well as mesalamine 1 gram 3 times a day orally and placed on a full liquid diet. We will follow the patient during her hospital stay.
[2016-09-28] MEDS: METHYLPREDNISOLONE IV 40 MG in SYRINGE 0 ML IV SCH (16:12)
--- NOTE | 2016-09-28 16:27 | Anesthesiology Progress Note ---
Anesthesia Post Op Note Date & Time Sep 28, 2016 at 16:27 Vital Signs Pain Intensity: 7.0 Vital Signs Past 12 Hours Date Time Temp Pulse Resp B/P Pulse Ox O2 Delivery O2 Flow Rate FiO2 09/28/16 15:44 36.7 77 17 108/69 97 Room Air 09/28/16 15:11 74 20 104/54 96 09/28/16 14:57 79 18 107/71 97 Room Air 79 09/28/16 13:27 37.4 80 18 111/58 96 Room Air 77 09/28/16 08:04 99 Room Air 09/28/16 08:01 37.0 85 14 110/68 99 Room Air 65 09/28/16 07:45 Room Air 09/28/16 07:41 37.0 65 14 110/68 99 Room Air Notes Mental Status: alert / awake / arousable, participated in evaluation Pt Amnestic to Procedure: Yes Nausea / Vomiting: adequately controlled Pain: improving with treatment Airway Patency, RR, SpO2: stable & adequate BP & HR: stable & adequate Hydration State: stable & adequate Anesthetic Complications: no major complications apparent
[2016-09-28 16:51] LABS: HEMATOCRIT 28.3 % (37-47)
--- NOTE | 2016-09-28 17:43 | Hospitalist Progress Note ---
Hospitalist Progress Note Date of Service Sep 28, 2016. Subjective Pt evaluation today including: conversation w/ patient, physical exam, chart review, review of studies Respiratory: No cough, No dyspnea at rest, No dyspnea on exertion, No hemoptysis, No problem reported, No see HPI, No shortness of breath, No sputum, No wheezing Cardiovascular: No PND, No chest pain, No claudication, No edema, No orthopnea, No palpitations, No problem reported, No see HPI Abdomen: + pain (improved.) Objective Vital Signs Date Time Temp Pulse Resp B/P Pulse Ox O2 Delivery O2 Flow Rate FiO2 09/28/16 15:44 36.7 77 17 108/69 97 Room Air 09/28/16 15:11 74 20 104/54 96 09/28/16 14:57 79 18 107/71 97 Room Air 79 09/28/16 13:27 37.4 80 18 111/58 96 Room Air 77 09/28/16 08:04 99 Room Air 09/28/16 08:01 37.0 85 14 110/68 99 Room Air 65 09/28/16 07:45 Room Air 09/28/16 07:41 37.0 65 14 110/68 99 Room Air 09/27/16 23:28 36.7 85 15 103/63 99 Room Air 09/27/16 23:15 Room Air Physical Exam General Appearance: WD/WN, + mild distress ENT: normal ENT inspection Neck: supple, no adenopathy Respiratory/Chest: chest non-tender, lungs clear, normal breath sounds Cardiovascular: regular rate, rhythm, no edema, no gallop, no JVD, no murmur Abdomen: normal bowel sounds, + tenderness (umbilical area minimal tenderness, colostomy +) Neurologic/Psychiatric: no motor/sensory deficits, oriented x 3 Skin: normal color Laboratory Results Last 24 Hours Test 09/27/16 20:56 09/28/16 03:00 09/28/16 08:45 09/28/16 16:06 Hemoglobin 9.7 g/dL 8.5 g/dL 8.3 g/dL 9.0 g/dL Hematocrit 29.0 % 25.7 % 25.6 % 28.3 % White Blood Count 8.03 K/uL Red Blood Count 3.23 M/uL Mean Corpuscular Volume 79.6 fL Mean Corpuscular Hemoglobin 26.3 pg Mean Corpuscular Hemoglobin Concent 33.1 g/dl Platelet Count 263 K/uL Mean Platelet Volume 9.3 fL RDW Standard Deviation 40.5 fL RDW Coefficient of Variation 13.9 % Neutrophils % (Manual) 50.0 % Lymphocytes % (Manual) 24.1 % Variant Lymphocytes % (manual) 19.6 % Monocytes % (Manual) 5.4 % Eosinophils % (Manual) 0.9 % Neutrophils # (Manual) 4.02 K/uL Total Absolute Neutrophils 4.02 K/uL Lymphocytes # (Manual) 1.94 K/uL Absolute Variant Lymphocytes 1.57 K/uL Total Absolute Lymphocytes 3.51 K/uL Monocytes # (Manual) 0.43 K/uL Eosinophils # (Manual) 0.07 K/uL Red Blood Cell Morphology Unremarkable Prothrombin Time 12.0 SECONDS Prothromb Time International Ratio 1.1 Activated Partial Thromboplast Time 33.2 SECONDS Partial Thromboplastin Ratio 1.3 Sodium Level 141 mmol/L Potassium Level 3.5 mmol/L Chloride Level 107 mmol/L Carbon Dioxide Level 28 mmol/L Anion Gap 6.0 mmol/L Blood Urea Nitrogen 3 mg/dl Creatinine 0.57 mg/dl Est Creatinine Clear Calc Drug Dose 162.4 ml/min Estimated GFR () 149.3 Estimated GFR (Non- 128.8 BUN/Creatinine Ratio 4.6 Random Glucose 89 mg/dl Calcium Level 7.4 mg/dl Magnesium Level 1.8 mg/dl Total Bilirubin 0.3 mg/dl Direct Bilirubin 0.1 mg/dl Aspartate Amino Transf (AST/SGOT) 4 U/L Alanine Aminotransferase (ALT/SGPT) 16 U/L Alkaline Phosphatase 49 U/L Total Protein 6.0 gm/dl Albumin 2.3 gm/dl Assessment and Plan Moderate to severe nonspecific colitis with hematochezia-- Appreciate GI input Started on IV Steroids, oral mesalamine. Continue with IV Protonix. Advance diet as per GI recommendations Depression--continue sertraline 75 mg by mouth daily.
[2016-09-28] MEDS: MESALAMINE 250 MG CAPCR PO SCH (20:33)
[2016-09-28] MEDS: MoRPHine SULFATE 2 MG/ML CARP IV PRN (21:30)
[2016-09-28 22:55] VITALS: BP 92/55; PULSE 69; TEMP 37; O2SAT 95
[2016-09-29] MEDS: METHYLPREDNISOLONE IV 40 MG in SYRINGE 0 ML IV SCH ×3 (00:51→15:45)
[2016-09-29] MEDS: NSS + 20MEQ KCL 1000ML 1,000 ML IV SCH ×3 (00:52→20:42)
[2016-09-29] MEDS: MoRPHine SULFATE 2 MG/ML CARP IV PRN ×5 (00:56→21:46)
[2016-09-29] MEDS: PANTOprazole INJ 40 MG in DEXTROSE 5% 100ML IV SCH ×3 (03:06→12:44)
[2016-09-29 06:01] LABS: HEMATOCRIT 31.5 % (37-47); MEAN CELL VOLUME 79.7 fL (80-100); MEAN CORPUSCULAR HEMOGLOBIN 25.1 pg (25-34); MEAN CORPUSCULAR HGB CONC 31.4 g/dl (32-36); MEAN PLATELET VOLUME 9.5 fL (7.4-10.4); PLATELET COUNT 377 K/uL (130-400); RED BLOOD COUNT 3.95 M/uL (4.2-5.4); WHITE BLOOD COUNT 5.24 K/uL (4.8-10.8)
[2016-09-29 06:15] LABS: INR 1.1 (0.9-1.1); PARTIAL THROMBOPLASTIN RATIO 1.2; PROTHROMBIN TIME (PATIENT) 11.4 SECONDS (9.0-12.0)
[2016-09-29 06:24] LABS: BASO % 0.2 %; BASO ABS # 0.01 K/uL (0-0.2); COMPLETE YES; IG% 0.6 %; LYMPH % 25.6 %; LYMPH ABS # 1.34 K/uL (1.2-3.4); MONO % 2.9 %; NEUT % 70.7 %
[2016-09-29 06:32] LABS: ALKALINE PHOSPHATASE 61 U/L (45-117); ALT/SGPT 13 U/L (12-78); AST/SGOT 4 U/L (15-37); BLOOD UREA NITROGEN 1 mg/dl (7-18); BUN/CREATININE RATIO 1.8 (10-20); CALCIUM 8.6 mg/dl (8.5-10.1); CARBON DIOXIDE 29 mmol/L (21-32); CHLORIDE 109 mmol/L (98-107); GLUCOSE 138 mg/dl (70-99); MAGNESIUM 2.4 mg/dl (1.8-2.4); POTASSIUM 3.9 mmol/L (3.5-5.1); SODIUM 143 mmol/L (136-145)
[2016-09-29 07:05] VITALS: BP 100/62; PULSE 52; TEMP 36.6; O2SAT 96
[2016-09-29] MEDS: MoRPHine SULFATE 4 MG/ML 1 ML CARP\\VIAL IV PRN (07:08)
[2016-09-29] MEDS: MESALAMINE 250 MG CAPCR PO SCH ×3 (08:03→20:43)
[2016-09-29] MEDS: SERTRALINE HCL 50 MG TAB PO SCH (08:03)
--- NOTE | 2016-09-29 11:02 | PROGRESS NOTE ---
DATE: 09/29/2016 DATE: 09/29/2016. SUBJECTIVE: The patient underwent colonoscopy through her colostomy and also evaluation endoscopically of her rectal stump. She was found to have severe pancolitis, also involving the rectal stump. Biopsies were obtained and are pending. She was started on IV steroids and mesalamine yesterday and today she feels significantly better. She is having no abdominal pain and she is hungry. She had tolerated full liquids yesterday. Stool cultures are still pending. C. diff is negative. Vital signs are normal. PHYSICAL EXAMINATION: GENERAL: Her ostomy output is brown liquid with no visible blood. ABDOMEN: Shows a midline scar with no masses or tenderness. IMPRESSION: The patient has severe pancolitis, probably from ulcerative colitis. I plan on adding CMV immunostains to her pathology biopsies that were obtained yesterday. We are waiting the results of stool cultures. In the meantime, the patient seems to be improving significantly on IV steroids and mesalamine, which will be continued. Will also advance her diet to a low fiber diet today and get IBD serologic tests including pANCA and anti-Saccharomyces cerevisiae antibodies. Will follow the patient during her stay.
--- NOTE | 2016-09-29 13:23 | Hospitalist Progress Note ---
Hospitalist Progress Note Date of Service Sep 29, 2016. Subjective Pt evaluation today including: conversation w/ patient, physical exam, chart review Respiratory: No cough, No dyspnea at rest, No dyspnea on exertion, No hemoptysis, No problem reported, No see HPI, No shortness of breath, No sputum, No wheezing Cardiovascular: No PND, No chest pain, No claudication, No edema, No orthopnea, No palpitations, No problem reported, No see HPI Abdomen: No GI bleeding, No constipation, No diarrhea, No nausea, No pain, No problem reported, No see HPI, No vomiting Medications Medications (Trade) Dose Ordered Sig/Lee Route Start Time Stop Time Status Last Admin Dose Admin Mesalamine 1000 mg 1,000 mg TID PO 09/28/16 21:00 10/28/16 20:59 09/29/16 08:03 1,000 MG Methylprednisolone Sodium Succinate/ Syringe (Solu-Medrol IV/ Syringe) 0.64 ml @ 1.5 mls/min Q8H IV 09/28/16 16:00 10/28/16 15:59 09/29/16 07:09 1.5 MLS/MIN Objective Vital Signs Date Time Temp Pulse Resp B/P Pulse Ox O2 Delivery O2 Flow Rate FiO2 09/29/16 07:05 36.6 52 15 100/62 96 Room Air 09/28/16 22:55 37.0 69 14 92/55 95 Room Air 09/28/16 22:45 Room Air 09/28/16 15:44 36.7 77 17 108/69 97 Room Air 09/28/16 15:20 97 Room Air 09/28/16 15:20 97 Room Air 09/28/16 15:11 74 20 104/54 96 09/28/16 14:57 79 18 107/71 97 Room Air 79 09/28/16 13:27 37.4 80 18 111/58 96 Room Air 77 Physical Exam General Appearance: WD/WN, no apparent distress Eyes: normal inspection, PERRL, EOMI ENT: normal ENT inspection, hearing grossly normal, TMs normal Neck: supple, no adenopathy, thyroid normal Respiratory/Chest: chest non-tender, lungs clear, normal breath sounds Cardiovascular: regular rate, rhythm, no edema, no gallop, no JVD Abdomen: normal bowel sounds, non tender, soft, + pertinent finding (colostomy ) Extremities: normal range of motion 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, oriented x 3 Laboratory Results Last 24 Hours Test 09/28/16 16:06 09/29/16 05:32 09/29/16 11:01 Hemoglobin 9.0 g/dL 9.9 g/dL Hematocrit 28.3 % 31.5 % White Blood Count 5.24 K/uL Red Blood Count 3.95 M/uL Mean Corpuscular Volume 79.7 fL Mean Corpuscular Hemoglobin 25.1 pg Mean Corpuscular Hemoglobin Concent 31.4 g/dl Platelet Count 377 K/uL Mean Platelet Volume 9.5 fL Neutrophils (%) (Auto) 70.7 % Lymphocytes (%) (Auto) 25.6 % Monocytes (%) (Auto) 2.9 % Eosinophils (%) (Auto) 0.0 % Basophils (%) (Auto) 0.2 % Neutrophils # (Auto) 3.71 K/uL Lymphocytes # (Auto) 1.34 K/uL Monocytes # (Auto) 0.15 K/uL Eosinophils # (Auto) 0.00 K/uL Basophils # (Auto) 0.01 K/uL RDW Standard Deviation 40.4 fL RDW Coefficient of Variation 13.9 % Immature Granulocyte % (Auto) 0.6 % Immature Granulocyte # (Auto) 0.03 K/uL Red Blood Cell Morphology Unremarkable Prothrombin Time 11.4 SECONDS Prothromb Time International Ratio 1.1 Activated Partial Thromboplast Time 31.5 SECONDS Partial Thromboplastin Ratio 1.2 Sodium Level 143 mmol/L Potassium Level 3.9 mmol/L Chloride Level 109 mmol/L Carbon Dioxide Level 29 mmol/L Anion Gap 5.0 mmol/L Blood Urea Nitrogen 1 mg/dl Creatinine 0.60 mg/dl Est Creatinine Clear Calc Drug Dose 154.3 ml/min Estimated GFR () 146.8 Estimated GFR (Non- 126.7 BUN/Creatinine Ratio 1.8 Random Glucose 138 mg/dl Calcium Level 8.6 mg/dl Magnesium Level 2.4 mg/dl Total Bilirubin 0.2 mg/dl Direct Bilirubin < 0.1 mg/dl Aspartate Amino Transf (AST/SGOT) 4 U/L Alanine Aminotransferase (ALT/SGPT) 13 U/L Alkaline Phosphatase 61 U/L Total Protein 7.8 gm/dl Albumin 2.8 gm/dl Assessment and Plan Moderate to severe nonspecific colitis with hematochezia-- Appreciate GI input Colonoscopy results noted (Pancolitis secondary to UC) Symptoms improved. Started on IV Steroids, oral mesalamine. Will start on PO Protonix Advance diet as per GI recommendations Depression--continue sertraline 75 mg by mouth daily.
[2016-09-29 14:55] VITALS: BP 100/61; PULSE 73; TEMP 36.9; O2SAT 92
[2016-09-29] MEDS: PANTOprazole SOD 40 MG TAB PO SCH (20:43)
[2016-09-29 22:48] VITALS: BP 103/63; PULSE 57; TEMP 36.8; O2SAT 94
[2016-09-30] MEDS: MoRPHine SULFATE 2 MG/ML CARP IV PRN ×2 (00:28→03:44)
[2016-09-30] MEDS: METHYLPREDNISOLONE IV 40 MG in SYRINGE 0 ML IV SCH ×4 (00:28→23:48)
[2016-09-30] MEDS: NSS + 20MEQ KCL 1000ML 1,000 ML IV SCH ×2 (06:20→16:47)
[2016-09-30 06:23] LABS: COMPLETE YES; HEMATOCRIT 28.9 % (37-47); IG% 0.4 %; LYMPH % 21.5 %; MEAN CELL VOLUME 81.4 fL (80-100); MEAN CORPUSCULAR HEMOGLOBIN 25.6 pg (25-34); MEAN CORPUSCULAR HGB CONC 31.5 g/dl (32-36); MEAN PLATELET VOLUME 11.2 fL (7.4-10.4); MONO % 7.8 %; NEUT % 70.3 %; PLATELET COUNT 399 K/uL (130-400); RED BLOOD COUNT 3.55 M/uL (4.2-5.4); WHITE BLOOD COUNT 8.36 K/uL (4.8-10.8)
[2016-09-30 07:00] LABS: BUN/CREATININE RATIO 7.4 (10-20); CALCIUM 8.3 mg/dl (8.5-10.1); CREATININE 0.59 mg/dl (0.60-1.20); POTASSIUM 4.2 mmol/L (3.5-5.1)
[2016-09-30 07:19] VITALS: BP 95/55; PULSE 57; TEMP 36.8; O2SAT 94
[2016-09-30] MEDS: MESALAMINE 250 MG CAPCR PO SCH ×3 (08:49→20:10)
[2016-09-30] MEDS: SERTRALINE HCL 50 MG TAB PO SCH (08:49)
[2016-09-30] MEDS: PANTOprazole SOD 40 MG TAB PO SCH ×2 (08:49→20:10)
--- NOTE | 2016-09-30 11:26 | PROGRESS NOTE ---
DATE: 09/30/2016 SUBJECTIVE: The patient states that she was able to tolerate a low fiber diet yesterday but had some cramps last night and this morning which seemed to improve after she moved her bowels this morning. The ostomy output is brown liquid with no obvious blood. She has had no drainage out of her rectal stump overnight. Her vital signs are her blood pressure 95/55, pulse 57, temperature is 36.8. Laboratory shows hemoglobin of 9.1, which is stable, white count 8.36, platelets are 399. Abdomen shows a midline scar and left-sided ostomy which looks healthy. There is no pain or masses on palpation. IMPRESSION: The patient has severe pancolitis. Results pending at this time include stool culture, colon biopsies and CMV amino staining as well as IBD serologies. So far the working diagnosis is ulcerative colitis. We will see how she does today on a low fiber diet and if she continues to do well, we may be able to switch her over to oral steroids tomorrow, I would recommend a dose of 40 mg when the time comes. We will continue to follow the patient.
--- NOTE | 2016-09-30 12:47 | Hospitalist Progress Note ---
Hospitalist Progress Note Date of Service Sep 30, 2016. Subjective Pt evaluation today including: conversation w/ patient, physical exam, chart review Voiding: no voiding problems Doing better. No abd pain. Tolerating oral diet. Ostomy output improved and almost normal. Medications Medications (Trade) Dose Ordered Sig/Lee Route Start Time Stop Time Status Last Admin Dose Admin Pantoprazole Sodium (Protonix Tab) 40 mg BID PO 09/29/16 21:00 10/29/16 20:59 09/29/16 20:43 40 MG Objective Vital Signs Date Time Temp Pulse Resp B/P Pulse Ox O2 Delivery O2 Flow Rate FiO2 09/30/16 00:37 Room Air 09/29/16 22:48 36.8 57 16 103/63 94 Room Air 09/29/16 15:35 Room Air 09/29/16 14:55 36.9 73 16 100/61 92 Room Air 09/29/16 13:59 Room Air Physical Exam General Appearance: WD/WN Eyes: normal inspection ENT: normal ENT inspection Neck: supple, no adenopathy Respiratory/Chest: chest non-tender, lungs clear, normal breath sounds Cardiovascular: regular rate, rhythm, no edema, no gallop, no JVD Abdomen: normal bowel sounds, non tender, soft, + pertinent finding (Colostomy bag in LLQ) Extremities: normal range of motion 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 Laboratory Results Last 24 Hours Test 09/29/16 11:01 09/30/16 05:55 White Blood Count 8.36 K/uL Red Blood Count 3.55 M/uL Hemoglobin 9.1 g/dL Hematocrit 28.9 % Mean Corpuscular Volume 81.4 fL Mean Corpuscular Hemoglobin 25.6 pg Mean Corpuscular Hemoglobin Concent 31.5 g/dl Platelet Count 399 K/uL Mean Platelet Volume 11.2 fL Neutrophils (%) (Auto) 70.3 % Lymphocytes (%) (Auto) 21.5 % Monocytes (%) (Auto) 7.8 % Eosinophils (%) (Auto) 0.0 % Basophils (%) (Auto) 0.0 % Neutrophils # (Auto) 5.88 K/uL Lymphocytes # (Auto) 1.80 K/uL Monocytes # (Auto) 0.65 K/uL Eosinophils # (Auto) 0.00 K/uL Basophils # (Auto) 0.00 K/uL RDW Standard Deviation 42.3 fL RDW Coefficient of Variation 14.1 % Immature Granulocyte % (Auto) 0.4 % Immature Granulocyte # (Auto) 0.03 K/uL Sodium Level 143 mmol/L Potassium Level 4.2 mmol/L Chloride Level 110 mmol/L Carbon Dioxide Level 27 mmol/L Anion Gap 6.0 mmol/L Blood Urea Nitrogen 4 mg/dl Creatinine 0.59 mg/dl Est Creatinine Clear Calc Drug Dose 156.9 ml/min Estimated GFR () 147.6 Estimated GFR (Non- 127.4 BUN/Creatinine Ratio 7.4 Random Glucose 127 mg/dl Calcium Level 8.3 mg/dl Assessment and Plan Moderate to severe nonspecific colitis with hematochezia-- Appreciate GI input Colonoscopy results noted (Pancolitis secondary to UC) Symptoms improved. Started on IV Steroids, oral mesalamine. Will start on PO Protonix Advance diet as per GI recommendations Possible discharge tomorrow. Depression--continue sertraline 75 mg by mouth daily.
[2016-09-30 14:53] VITALS: BP 120/73; PULSE 63; TEMP 36.8; O2SAT 95
[2016-09-30] MEDS: MoRPHine SULFATE 4 MG/ML 1 ML CARP\\VIAL IV PRN ×2 (21:11→23:49)
[2016-09-30 22:47] VITALS: BP 130/78; PULSE 60; TEMP 36.5; O2SAT 98
[2016-10-01] MEDS: MoRPHine SULFATE 4 MG/ML 1 ML CARP\\VIAL IV PRN (02:06)
[2016-10-01] MEDS: NSS + 20MEQ KCL 1000ML 1,000 ML IV SCH ×2 (02:06→13:09)
[2016-10-01 07:46] VITALS: BP 130/76; PULSE 40; TEMP 36.8; O2SAT 96
[2016-10-01 07:53] VITALS: PULSE 52
[2016-10-01 07:59] VITALS: O2SAT 96
[2016-10-01] MEDS: METHYLPREDNISOLONE IV 40 MG in SYRINGE 0 ML IV SCH (08:29)
[2016-10-01] MEDS: PANTOprazole SOD 40 MG TAB PO SCH (08:29)
[2016-10-01] MEDS: MESALAMINE 250 MG CAPCR PO SCH ×2 (08:30→14:14)
[2016-10-01] MEDS: SERTRALINE HCL 50 MG TAB PO SCH (08:34)
[2016-10-01] MEDS: KETOROLAC TROMETHAMINE 30 MG/ML VIAL IV. PRN (08:38)
[2016-10-01] MEDS ORDERED: PRT40 PO (14:30)
[2016-10-01] MEDS ORDERED: PNT250 PO (14:30)
[2016-10-01] MEDS ORDERED: PRD20 PO (14:30)
--- NOTE | 2016-10-01 14:39 | Discharge Instructions ---
Discharge Instructions Date of Service Oct 01, 2016. Admission Reason for Admission: Bloody Diarrhea, Colostomy In Place Discharge Discharge Diagnosis / Problem: Colitis Discharge Goals Goal(s): Decrease discomfort, Improve function, Increase independence Activity Recommendations Activity Limitations: as noted below Lifting Limitations: gradually increase as tolerated Exercise/Sports Limitations: as tolerated May Resume Sexual Activity: when tolerated Shower/Bathe: no limitations . Instructions / Follow-Up Instructions / Follow-Up Colitis (Inflammation of the Bowel) with Hematochezia (Blood in Stool): - You underwent a colonoscopy with cultures and tissue sampling pending - visualization suggests a possible ulcerative colitis - Some laboratory studies are still pending to further diagnose this condition - You will be given a prescription for Prednisone (steroid) 40 mg daily - take this until your follow-up appointment at which time this dosing may be adjusted - Continue Mesalamine 1000 mg three times a day until your next follow-up and dosing may be adjusted at that time - You will also be prescribed Protonix (an acid-reflux medication) to help prevent GI upset and irritation from steroids and mesalamine - DIET - PLEASE FOLLOW A LOW FIBER DIET AT THIS TIME - AVOID ADDITIONAL NSAID USE - IBUPROFEN, ADVIL, MOTRIN, ALEVE, ASPIRIN.... -- For mild pain use Tylenol and follow dosing instructions on bottle Follow-Up: - Please follow-up with GI on October 15, 2016 at 9:00 AM Current Hospital Diet Patient's current hospital diet: Low Fiber Diet Discharge Diet Recommended Diet: Low Fiber Diet Procedures Procedures Performed: FLEX SIG WITH BX ILEOSCOPY WITH BX Pending Studies Studies pending at discharge: yes List of pending studies: Biopsy - pending Immunology values - pending Medical Emergencies . Who to Call and When: Medical Emergencies: If at any time you feel your situation is an emergency, please call 911 immediately. . Non-Emergent Contact Non-Emergency issues call your: Primary Care Provider Call Non-Emergent contact if: you have a fever, your pain is concerning you, you have any medication questions . . "Provider Documentation" section prepared by Sonja Vazquez. VTE Core Measure Inpt VTE Proph given/why not?: SCD's
[2016-10-01 14:54] VITALS: BP 120/67; PULSE 59; TEMP 37; O2SAT 96
[2016-10-01 15:13] VITALS: BP 120/67; PULSE 59; TEMP 37; O2SAT 96
--- NOTE | 2016-10-01 15:15 | Discharge Summary ---
Discharge Summary Date of Service Oct 01, 2016. (Sonja Vazquez PA-C) Discharge Summary Admission Date: Sep 26, 2016 at 21:00 Discharge Date: Oct 01, 2016 Discharge Disposition: Home Principal Diagnosis: Pancolitis Problems/Secondary Diagnoses: Medical Problems: (1) Bloody diarrhea (2) Bronchitis Surgical Problems: (1) Colostomy in place Procedures: 1. Colonoscopy Findings: Diffuse severe inflammation characterized by erythema, friability, granularity and loss of vascularity was found in the entire colon. Biopsies were taken with a cold forceps for histology. Biopsies were taken with a cold forceps for histology from the rectum. Estimated blood loss was minimal. Biopsies were taken with a cold forceps in the sigmoid colon, in the descending colon, in the transverse colon and in the ascending colon for histology. Estimated blood loss was minimal. The terminal ileum appeared normal. Consultations: 1. Gastroenterology (Sonja Vazquez PA-C) Medication Reconciliation New Medications: Mesalamine Cont Rel (Pentasa) 250 Mg Caper 1000 MG PO TID for 30 Days Pantoprazole (Pantoprazole Sodium) 40 Mg Tab 40 MG PO BID for 30 Days, #60 TAB Prednisone (Prednisone) 20 Mg Tab 40 MG PO DAILY for 30 Days, #60 TAB Continued Medications: Sertraline HCl (Sertraline HCl) 25 Mg Tab 75 MG PO DAILY Discharge Exam Review of Systems: Constitutional: No chills, No fever Eyes: No worsening of vision ENT: No nasal symptoms, No sore throat, No trouble swallowing Respiratory: No shortness of breath Cardiovascular: No chest pain Abdomen: No constipation, No diarrhea, No nausea, No pain, No vomiting Musculoskeletal: No calf pain, No swelling Genitourinary - Female: No dysuria Integumentary: No rash Physical Exam: General Appearance: WD/WN, no apparent distress Eyes: sclerae normal ENT: hearing grossly normal Neck: supple, no JVD, trachea midline Respiratory/Chest: lungs clear, no respiratory distress, no accessory muscle use Cardiovascular: regular rate, rhythm, no gallop, no murmur Abdomen / GI: normal bowel sounds, non tender, soft, + pertinent finding ( midline surgical incision well-healed; LLQ colostomy stoma beefy red and no signs of infection of surrounding skin) Extremities: no calf tenderness, no pedal edema Neurologic/Psychiatric: alert, oriented x 3 Skin: normal color, warm/dry (Sonja Vazquez, LUIS) Hospital Course ADMISSION: The patient is a 26-year-old female who presents to the emergency department with complaint of abdominal pain. She had been admitted into the hospital on September 25, and was advised to have a colonoscopy by Dr. Fraser, however, the patient reported that she had to go home and would get testing done as an outpatient. While in the hospital, her symptoms have resolved. She then developed worsening abdominal discomfort after discharge, and noted blood in stool through her colostomy, and return to the emergency department for assessment tonight. HOSPITAL COURSE: Ms. Prado was admitted for continuing diarrhea and abdominal pain. Patient was recently admitted for similar issues and was instructed to follow-up with outpatient colonoscopy. Unfortunately, symptoms worsened and she was admitted and gastroenterology consulted. She underwent colonoscopy which showed diffuse severe inflammation, erythema, friability, granularity, and loss of vascularity in the entire colon. Please see procedures for official findings. Biopsies and immunology testing obtained and currently pending. Patient was initiated on IV steroids and oral mesalamine. She was provided a prescription for mesalamine 1000 mg TID and prednisone 40 mg daily to continue until follow-up appointment. A prescription for Protonix 40 mg BID given to help control stomach acid and irritability from steroid and mesalamine. Upon discharge, patient reports that hematochezia and diarrhea are actually resolved. Colostomy site inspected and stoma is beefy red without signs of surrounding skin infection. Patient's diet was advanced as tolerated and she was instructed to follow a low fiber diet until follow-up. Follow-up appointment with GI established for 10/15/2016 at 9 AM. Patient is afebrile, denies abdominal pain, diarrhea and hematochezia have resolved. Patient is optimal for discharge home with outpatient follow-up Of note: Colonoscopy visualization significant for IBD, however, multiple similar cases have presented to the hospital and GI services that are positive for Campylobacter infection. At this time, patient is without leukocytosis and is afebrile. Likely patient is with IBD, but should consider Campylobacter infection upon results of further testing and biopsies. Total Time Spent: Greater than 30 minutes This includes examination of the patient, discharge planning, medication reconciliation, and communication with other providers. (Sonja Vazquez, SHARC) i personally examined pt and verified all cano points delmi Vazquez PAC feeling "great" wants to go home gi input appreciated nad, breathing unlabored, no pallor inflammatory bowel disease onset/exacerbation - stable/safe for home otherwise as above (Eric Pina D.O.) Discharge Instructions Please refer to the electronic Patient Visit Report (Discharge Instructions) for additional information. (Sonja Vazquez, PA-C) Additional Copies To Zoltan Khan MD
--- NOTE | 2016-10-01 16:10 | PROGRESS NOTE ---
DATE: 10/01/2016 SUBJECTIVE: The patient is feeling significantly improved on steroids and Pentasa. She states that her abdomen is less distended and she is not having any visible blood in her ostomy. Laboratory laura, her stool for bacterial pathogens is negative. Final report stool for C. diff is negative. Biopsies obtained from her colonoscopy on September 28 are still pending as well as CMV immunostains. I also ordered inflammatory bowel disease, serologic tests which are also pending. IMPRESSION: The patient has severe pancolitis, which is improving on Pentasa and prednisone. She will be discharged today on a low fiber diet and 40 mg of prednisone a day. She is to follow up in 2 weeks and hopefully we will have the remainder of these tests back by then, so we can come up with a more definitive diagnosis. Will see the patient back in the office in about 2 weeks.
[2016-10-05 18:30] LABS: S.CEREVISIAE AB IGA 23.2 U (<=20.0); S.CEREVISIAE AB IGG 16.8 U (<=20.0)
== END 2016-10-01 15:51 | disposition home or self-care (01) ==
LOC: ENRESERVTM → ENRESERVDT → C.EDB 15:54 → C.MSW 21:00
PROVIDERS: ADMIT Hospitalist; ATTEND Internal Medicine
DX: K51.00 Ulcerative (chronic) pancolitis without complications (principal); K62.89 Other specified diseases of anus and rectum; F32.9 Major depressive disorder, single episode, unspecified; Z79.899 Other long term (current) drug therapy; Z93.3 Colostomy status; Z87.09 Personal history of other diseases of the respiratory system; Z83.3 Family history of diabetes mellitus; Z82.49 Family history of ischemic heart disease and other diseases of the circulatory system

== ENCOUNTER → 2016-10-23 | Outpatient (CLI) | payer OTHER ==
[~2016-10-23] MED LIST changes: +PNT250 PO; +PRD20 PO; +PRT40 PO
[2016-10-31 19:53] LABS: QUANTIFERON NIL 0.02 IU/ML
== END | disposition home or self-care (01) ==
LOC: C.LABSPEC 12:33
PROVIDERS: ATTEND Internal Medicine Gastroenterology
DX: K51.90 Ulcerative colitis, unspecified, without complications (principal)

== ENCOUNTER → 2017-07-30 | Outpatient (CLI) | payer OTHER | END | disposition home or self-care (01) | LOC: C.LABSPEC 14:30 | PROVIDERS: ATTEND Obstetrics & Gynecology | DX: Z34.81 Encounter for supervision of other normal pregnancy, first trimester (principal) ==

== ENCOUNTER → 2017-07-30 | Outpatient (CLI) | payer OTHER | END | disposition home or self-care (01) | LOC: C.PAPS 14:33 | PROVIDERS: ATTEND Obstetrics & Gynecology | DX: Z34.81 Encounter for supervision of other normal pregnancy, first trimester (principal) ==

== ENCOUNTER 2017-08-26 22:37 | Emergency (ER) | payer OTHER ==
[~2017-08-26] VITALS: Ht 175.3 cm; Wt 86.9 kg
[2017-08-26 22:40] VITALS: TEMP 36.7; Ht 175.3 cm; Wt 86.9 kg
[2017-08-26] MEDS ORDERED: PRENTAB26 PO (23:37)
[2017-08-27] MEDS ORDERED: XYLOCAINE 1%/SOD BICARB 20 ML VIAL INFIL ONE (00:45)
[2017-08-27] MEDS ORDERED: CEPH500C2 PO (01:12)
[2017-08-27] MEDS ORDERED: CEPHALEXIN 500MG HOME PACK 1 EA BTL PO ONE (01:15)
[2017-08-27 01:34] VITALS: BP 127/63; PULSE 81; O2SAT 99
--- NOTE | 2017-08-27 04:26 | EMERGENCY ROOM VISIT NOTE ---
ED Visit Note First contact with patient: 22:52 CHIEF COMPLAINT: Infection of the left thigh HISTORY OF PRESENT ILLNESS: This 27-year-old patient presents to the emergency department after they noticed a hard, red, tender area left thigh. It is slowly getting larger, more painful and tender. No fever, chills, or loss of appetite. There has been not drainage from the area. There was not injury to the area preceding the infection. They rate the pain as throbbing and 5/10. Tetanus shot is up to date. They have tried to squeeze at it. The patient is not diabetic. The patient has no history of subcutaneous abscesses. Patient does have UC. REVIEW OF SYSTEMS: A review of systems was performed with positives and pertinent negatives listed in the history of present illness. All other systems were reviewed and are negative. ALLERGIES: Sulfa MEDICATIONS: Reviewed PMH: Ulcerative colitis SOCIAL HISTORY: No drug use PHYSICAL EXAM: Vital Signs: Reviewed Nurse's notes, vital signs stable. GENERAL : Pleasant female, no acute distress, non toxic in appearance, well-developed well-nourished. SKIN: There is an erythematous indurated area left inner thigh which measures about 2 cm in diameter. It is fluctuant but there is no pointing or drainage. There is a zone of inflammation around it but no lymphangitis. Capillary refill less than 2 seconds. MUSCULOSKELETAL: There is no limitation of the range of motion of the leg. EMERGENCY DEPARTMENT COURSE: I examined the patient. Ultrasound concerning for abscess sobriety was initiated. After saline and Betadine cleansing and 4 mL of 1% buffered lidocaine anesthesia, the abscess was incised with a number 11 scalpel blade. A large amount of purulent material was released with more expressed by pressure. A swab was obtained for culture. The abscess cavity was further probed with a needle stage driver and the deep pocket expressed. The abscess cavity was then copiously irrigated with sterile saline under pressure. The area was then packed with iodoform packing. The area was cleaned with sterile saline and dressed with bulky bandage. The patient was started on Keflex. She is counseled on wound care and advised to have wound check and repacking in 2 days. She was given the packing material advised not to open it and bring it to her appointment. The patient tolerated the procedure well. The patient was discharged home in stable condition. Differential diagnosis includes abscess, cellulitis, DVT, drug eruption and other etiologies were considered. DIAGNOSIS: Abscess of the left thigh DISCHARGE INSTRUCTIONS & TREATMENT: as below Problem List Medical Problems: (1) Bronchitis Status: Resolved Surgical Problems: (1) Colostomy in place Status: Chronic Current/Historical Medications Scheduled Cephalexin Monohydrate (Keflex), 500 MG PO QID Multivit/Min/Iron/Fol Ac/Pren ( Vitamin), 1 TAB PO DAILY Sertraline HCl (Sertraline HCl), 75 MG PO DAILY Allergies Coded Allergies: Sulfa Antibiotics (Verified Allergy, Unknown, HIVES, 08/26/17) Vital Signs Date Time Temp Pulse Resp B/P (MAP) Pulse Ox O2 Delivery O2 Flow Rate FiO2 08/27/17 01:34 81 20 127/63 99 08/26/17 22:40 36.7 86 18 134/85 98 Room Air Medications Administered Medications (Trade) Dose Ordered Sig/Lee Route Start Time Stop Time Status Last Admin Dose Admin Cephalexin Monohydrate (Keflex 500MG Home Pack) 1 homepack NOW ONCE PO 08/27/17 01:15 08/27/17 01:16 DC 08/27/17 01:30 1 HOMEPACK Departure Information Impression Primary Impression: Abscess of thigh Dispostion Home / Self-Care Condition GOOD Prescriptions Cephalexin Monohydrate (KEFLEX) 500 Mg Cap 500 MG PO QID for 6 Days, #24 CAP Prov: Fay Villagran .LUIS 08/27/17 Forms WORK / SCHOOL INSTRUCTIONS, HOME CARE DOCUMENTATION FORM, IMPORTANT VISIT INFORMATION Patient Instructions [facility] ED Abscess IandD Additional Instructions Cephalexin(Keflex) 500mg: Take one pill four times daily for 7 days for your skin infection. All antibiotics can cause diarrhea. If this occurs and you feel worse or it does not resolve in 1-2 days follow up with your doctor or return to the Emergency Department as this could be signs of serious underlying problems. Any medication can cause an allergic reaction, stop the pills immediately and return to the ER for rash, hives, breathing difficulties, or swelling. Acetaminophen(Tylenol) may be used for fever or pain. Use 1000mg every six hours as needed. Avoid using more than 3000mg in a 24 hour period. Outer daily dressing changes. Wound repacking in 2 days. See the family care doctor for this. Bring the material that was given to you in the ER and do not open it. Rest and drink plenty of fluids. Continue current medications. Return to the ER for severe pain, persistent fevers, spreading redness, or any worsening of your condition. Follow up with your primary physician within 2-3 days for a recheck of the current condition.
--- NOTE | 2017-08-27 06:32 | DIAGNOSTIC IMAGING REPORT ---
LEFT THIGH ULTRASONOGRAPHY CLINICAL HISTORY: Infection. Possible abscess. Pain, redness, swelling. COMPARISON STUDY: No previous studies for comparison. FINDINGS: Within the left posterior upper thigh, there is a superficial complex fluid collection measuring 28 x 14 x 20 mm. This demonstrates surrounding hyperemia. The findings are viewed as suspicious for a superficial abscess. IMPRESSION: Complex superficial fluid collection measuring 20 x 14 x 20 mm. Given the clinical history, the collection is viewed as suspicious for a superficial abscess Electronically signed by: Scott Moss M.D. 08/27/2017 6:31 AM Dictated Date/Time: 08/27/2017 6:30 AM
--- NOTE | 2017-08-30 12:11 | Pharmacy Progress Note ---
ED Pharmacist Culture FollowUp Date of Service: Aug 30, 2017. Patient's L thigh abscess cx is growing CoN staph + prevotella biva + peptostreptococcus sp On 08/27, I&D of abscess was performed and Iodoform packing placed. She was discharged on Keflex x 7 days and was to return to ER in 2 days for f/u. Anaerobes in cx would not be covered by Keflex, however I&D may have been adequate to treat abscess. Patient has not returned to the ER since original presentation. Reviewed case w/ Dr Taveras. Plan is to call pt, if she feels the wound is healing nicely no change in abx is necessary. However if the wound is no better , the patient's abx with be changed to Augmentin 875mg PO BID x 7 days. I attempted to contact the patient w/ the ph # provided: [phone]. There was no answer but I did leave a message.
== END 2017-08-27 01:35 | disposition home or self-care (01) ==
LOC: C.EDB 22:38
DX: L02.416 Cutaneous abscess of left lower limb (principal); K51.90 Ulcerative colitis, unspecified, without complications; Z88.2 Allergy status to sulfonamides

== ENCOUNTER 2017-09-11 13:27 | Emergency (ER) | payer OTHER ==
[~2017-09-11] VITALS: Ht 165.1 cm; Wt 84.6 kg
[~2017-09-11 13:27] MED LIST changes: -PNT250 PO; -PRD20 PO; +PRENTAB26 PO; -PRT40 PO
[2017-09-11 13:31] VITALS: TEMP 36.7; Ht 165.1 cm; Wt 84.6 kg
--- NOTE | 2017-09-11 13:49 | EMERGENCY ROOM VISIT NOTE ---
History Chief Complaint: RECTAL BLEEDING Stated Complaint: FLARE UP OF ULCERATIVE COLITIS SYMPTOMS Review of Systems A 10 point review of systems was negative unless stated above. Past Medical/Surgical History Medical Problems: (1) Bloody diarrhea (2) Bronchitis Surgical Problems: (1) Colostomy in place Family History Diabetes mellitus Hypertension None elicited Social History Smoking Status: Never Smoker Smokeless Tobacco Use: No Alcohol Use: none Drug Use: none Marital Status: in relationship Housing Status: lives with family Occupation Status: employed Current/Historical Medications Scheduled Multivit/Min/Iron/Fol Ac/Pren ( Vitamin), 1 TAB PO DAILY Sertraline HCl (Sertraline HCl), 75 MG PO DAILY Physical Exam Vital Signs Date Time Temp Pulse Resp B/P (MAP) Pulse Ox O2 Delivery O2 Flow Rate FiO2 09/11/17 13:31 36.7 83 17 137/77 97 Room Air Departure Information Referrals Zoltan Khan MD (PCP) Patient Instructions My [facility]
[2017-09-11] MEDS ORDERED: SODIUM CHLORIDE 0.9% 500ML 500 ML IV STA (14:14)
[2017-09-11] MEDS ORDERED: ADAL1INJ (14:49)
[2017-09-11 14:53] LABS: HEMATOCRIT 35.4 % (37-47); HEMOGLOBIN 11.8 g/dL (12.0-16.0); MEAN CELL VOLUME 80.1 fL (80-100); MEAN CORPUSCULAR HEMOGLOBIN 26.7 pg (25-34); MEAN CORPUSCULAR HGB CONC 33.3 g/dl (32-36); MEAN PLATELET VOLUME 9.7 fL (7.4-10.4); PLATELET COUNT 301 K/uL (130-400); RED CELL DISTRIBUTION WIDTH CV 14.1 % (11.5-14.5); RED CELL DISTRIBUTION WIDTH SD 41.1 fL (36.4-46.3); WHITE BLOOD COUNT 9.09 K/uL (4.8-10.8)
[2017-09-11 15:01] LABS: INR 0.9 (0.9-1.1); PTT PATIENT 26.4 SECONDS (21.0-31.0)
[2017-09-11 15:18] LABS: ALBUMIN 3.2 gm/dl (3.4-5.0); ALT/SGPT 19 U/L (12-78); BLOOD UREA NITROGEN 8 mg/dl (7-18); CALCIUM 8.9 mg/dl (8.5-10.1); CARBON DIOXIDE 25 mmol/L (21-32); CREATININE 0.53 mg/dl (0.60-1.20); GLUCOSE 69 mg/dl (70-99); LIPASE 124 U/L (73-393); POTASSIUM 3.5 mmol/L (3.5-5.1); SODIUM 136 mmol/L (136-145)
[2017-09-11 15:20] LABS: BASO % 0.2 %; BASO ABS # 0.02 K/uL (0-0.2); EOS % 1.4 %; EOS ABS # 0.13 K/uL (0-0.5); IG# 0.03 K/uL (0.00-0.02); LYMPH % 29.5 %; LYMPH ABS # 2.68 K/uL (1.2-3.4); MONO % 3.7 %; MONO ABS # 0.34 K/uL (0.11-0.59); NEUT % 64.9 %; NEUT ABS # 5.89 K/uL (1.4-6.5)
[2017-09-11 15:33] LABS: ALKALINE PHOSPHATASE 65 U/L (45-117); AST/SGOT 12 U/L (15-37); TOTAL PROTEIN 8.1 gm/dl (6.4-8.2)
[2017-09-11] MEDS ORDERED: PRED20TA PO (15:54)
[2017-09-11 16:01] VITALS: BP 115/59; PULSE 73; O2SAT 97
--- NOTE | 2017-09-11 21:12 | EMERGENCY ROOM VISIT NOTE ---
History Report prepared by Jerome: Ellis Rapp Under the Supervision of: Dr. Frederick Nice M.D. First contact with patient: 13:59 Chief Complaint: RECTAL BLEEDING Stated Complaint: FLARE UP OF ULCERATIVE COLITIS SYMPTOMS History of Present Illness The patient is a 27 year old female who presents to the Emergency Room with complaints of intermittent diarrhea for two weeks. She was seen in the ED August 26, 2017 for an abscess on her thigh. She was prescribed Keflex. She states that she began experience abdominal pain as soon as she started antibiotic treatment. She states that her stomach feels inflamed. She started to develop diarrhea at that time too. She completed the antibiotic treatment one week ago. She reports bloody stools. She notes the blood is bright red with mucus and is more present in her morning stools. She denies any fever, vomiting , or urinary symptoms. She is 15 weeks . She is unsure if she has felt the baby kick. She has had an ultrasound three weeks ago and everything appeared normal at that time. She denies any vaginal bleeding or abnormal vaginal discharge. She has a history of ulcerative colitis. She takes Humira. She spoke with her her newscast producer, Dr. Dhaliwal, yesterday who ordered blood work and stool samples. She was supposed to get them today but decided to come here instead. Source of History: patient Onset: two weeks Position: other (rectal/colostomy) Quality: other (diarrhea) Timing: intermittent Modifying Factors (Worsening): eating Associated Symptoms: + abdominal pain, No fevers, No vomiting, No urinary symptoms Note: She notes bloody stools. She denies any abnormal vaginal bleeding or discharge. Review of Systems See HPI for pertinent positives & negatives. A total of 10 systems reviewed and were otherwise negative. Past Medical & Surgical Medical Problems: (1) Abscess (2) Acute bronchitis (3) Acute bronchitis (4) Bronchitis (5) RUPTURED MEMBRANES (6) RUPTURED MEMBRANES (7) RUPTURED MEMBRANES (8) Term (9) Ulcerative colitis (10) UTI (urinary tract infection) Surgical Problems: (1) Colostomy in place Family History Diabetes mellitus Hypertension Social History Smoking Status: Never Smoker Smokeless Tobacco Use: No Alcohol Use: none Drug Use: none Marital Status: in relationship Housing Status: lives with family Occupation Status: employed Current/Historical Medications Scheduled Multivit/Min/Iron/Fol Ac/Pren ( Vitamin), 1 TAB PO DAILY Prednisone (Prednisone), 1 TAB PO DAILY Sertraline HCl (Sertraline HCl), 75 MG PO DAILY Miscellaneous Medications Adalimumab (Humira) Allergies Coded Allergies: Sulfa Antibiotics (Verified Allergy, Unknown, HIVES, 09/11/17) Physical Exam Vital Signs Date Time Temp Pulse Resp B/P (MAP) Pulse Ox O2 Delivery O2 Flow Rate FiO2 09/11/17 16:01 73 18 115/59 97 09/11/17 13:31 36.7 83 17 137/77 97 Room Air Physical Exam Constitutional: Vital signs reviewed. Eyes: Pupils are equal round reactive to light. Conjunctiva are noninjected. ENT: Pharynx is clear without erythema or exudate. Mucous membranes are moist. Neck supple without meningeal signs. Respiratory: Clear to auscultation bilaterally. Breath sounds are equal bilaterally. Cardiovascular: Regular rate and rhythm. No rubs or gallops. GI: Soft, nondistended and minimal suprapubic tenderness. Bowel sounds are present. Colostomy in LLQ, no output noted. Musculoskeletal: No peripheral edema. No lower extremity tenderness. RECTAL: Rectal pouch noted, no active bleeding. Integumentary: No cyanosis. Neurological: The patient is awake and alert. No focal deficits. Psychiatric: Normal affect. Medical Decision & Procedures Laboratory Results 09/11/17 14:40 Red Blood Count 4.42, Mean Corpuscular Volume 80.1, Mean Corpuscular Hemoglobin 26.7, Mean Corpuscular Hemoglobin Concent 33.3, Mean Platelet Volume 9.7, Neutrophils (%) (Auto) 64.9, Lymphocytes (%) (Auto) 29.5, Monocytes (%) (Auto) 3.7, Eosinophils (%) (Auto) 1.4, Basophils (%) (Auto) 0.2, Neutrophils # (Auto) 5.89, Lymphocytes # (Auto) 2.68, Monocytes # (Auto) 0.34, Eosinophils # (Auto) 0.13, Basophils # (Auto) 0.02 09/11/17 14:40 Test 09/11/17 14:40 White Blood Count 9.09 K/uL (4.8-10.8) Red Blood Count 4.42 M/uL (4.2-5.4) Hemoglobin 11.8 g/dL (12.0-16.0) Hematocrit 35.4 % (37-47) Mean Corpuscular Volume 80.1 fL (80-100) Mean Corpuscular Hemoglobin 26.7 pg (25-34) Mean Corpuscular Hemoglobin Concent 33.3 g/dl (32-36) Platelet Count 301 K/uL (130-400) Mean Platelet Volume 9.7 fL (7.4-10.4) Neutrophils (%) (Auto) 64.9 % Lymphocytes (%) (Auto) 29.5 % Monocytes (%) (Auto) 3.7 % Eosinophils (%) (Auto) 1.4 % Basophils (%) (Auto) 0.2 % Neutrophils # (Auto) 5.89 K/uL (1.4-6.5) Lymphocytes # (Auto) 2.68 K/uL (1.2-3.4) Monocytes # (Auto) 0.34 K/uL (0.11-0.59) Eosinophils # (Auto) 0.13 K/uL (0-0.5) Basophils # (Auto) 0.02 K/uL (0-0.2) RDW Standard Deviation 41.1 fL (36.4-46.3) RDW Coefficient of Variation 14.1 % (11.5-14.5) Immature Granulocyte % (Auto) 0.3 % Immature Granulocyte # (Auto) 0.03 K/uL (0.00-0.02) Red Blood Cell Morphology Unremarkable Erythrocyte Sedimentation Rate 54 mm/hr (0-21) Prothrombin Time 9.7 SECONDS (9.0-12.0) Prothromb Time International Ratio 0.9 (0.9-1.1) Activated Partial Thromboplast Time 26.4 SECONDS (21.0-31.0) Partial Thromboplastin Ratio 1.0 Anion Gap 7.0 mmol/L (3-11) Est Creatinine Clear Calc Drug Dose 172.8 ml/min Estimated GFR () > 150.0 Estimated GFR (Non- 131.0 BUN/Creatinine Ratio 15.7 (10-20) Calcium Level 8.9 mg/dl (8.5-10.1) Total Bilirubin 0.2 mg/dl (0.2-1) Direct Bilirubin < 0.1 mg/dl (0-0.2) Aspartate Amino Transf (AST/SGOT) 12 U/L (15-37) Alanine Aminotransferase (ALT/SGPT) 19 U/L (12-78) Alkaline Phosphatase 65 U/L (45-117) C-Reactive Protein 2.27 mg/dl (0-0.29) Total Protein 8.1 gm/dl (6.4-8.2) Albumin 3.2 gm/dl (3.4-5.0) Lipase 124 U/L (73-393) Laboratory results as reviewed by me. Medications Administered Medications (Trade) Dose Ordered Sig/Lee Route Start Time Stop Time Status Last Admin Dose Admin Sodium Chloride 500 ml @ 999 mls/hr Q31M STAT IV 09/11/17 14:14 09/11/17 14:44 DC 09/11/17 14:45 999 MLS/HR ED Course 1404: The patient was evaluated in room C3. A complete history and physical exam was performed. 1414: Ordered Sodium Chloride 500 ml @ 999 mls/hr IV 1420: I reassessed the patient at this time. I performed a bedside US. Findings showed a live IUP with movement, HR 150. 1543: I spoke with Dr. Dhaliwal [place] [facility] gastroenterology. We discussed the patient's case. The patient will be further evaluated. He recommends Prednisone 20mg daily. He will follow up with the patient in the office. 1552: I reassessed the patient at this time. She is resting comfortably. She states that she is unable to provide a stool sample. She will take the kit home and bring the stool in on her own. I discussed the results and treatment plan with the patient. I answered all pertaining questions that she had. She expressed understanding and verbalized agreement. The patient will be discharged home. Medical Decision This is a 27-year-old female who presents with rectal bleeding and abdominal pain. Differential diagnosis includes ulcerative colitis flare, C. difficile colitis, antibiotic side effect, dehydration, foodborne illness. I did perform a limited focused review of portions of the patient's old chart on the electronic medical record. The patient was seen 08/26/2017 for an abscess on her thigh. She was discharged on Keflex. I did evaluate the patient as noted above. The patient is presenting with abdominal pain with intermittent diarrhea with rectal bleeding since she was started on an antibiotic for a thigh abscess. She is approximately 13 weeks . heart tones were 150. I did do a limited bedside ultrasound which showed an intrauterine fetus with movement and heart activity. IV access was established. I did order and review the patient's blood work as noted in the electronic medical record. Her white blood cell count is not elevated. Hemoglobin is stable. CRP and ESR slightly elevated. I did order C. difficile testing because of recent antibiotic use and stool cultures but the patient did not have any colostomy output even after she ate and drank here. She also stated that the bleeding and mucus was also coming from her blind rectal pouch. I did discuss the case with Dr. Dhaliwal of gastroenterology. He recommended the patient be placed on prednisone 20 mg daily for the next 5 days and he will follow-up with her in the office. The patient was happy with this plan and she was given equipment to bring back a stool sample should she be able to later. She was discharged in good condition. Medication Reconcilliation Current Medication List: was personally reviewed by me Blood Pressure Screening Patient's blood pressure: Elevated blood pressure Blood pressure disposition: Referred to PCP Consults Time Called: 1532 Consulting Physician: Dr. Madhuri Arellano [facility] gastroenterology Returned Call: [phone] Madhuri Arellano [facility] gastroenterology. We discussed the patient's case. The patient will be further evaluated. He recommends Prednisone 20mg daily. He will follow up with the patient in the office. Impression Primary Impression: Lower abdominal pain Additional Impressions: Diarrhea Ulcerative colitis Scribe Attestation The scribe's documentation has been prepared under my direct and personally reviewed by me in its entirety. I confirm that the note above accurately reflects all work, treatment, procedures, and medical decision making performed by me. Departure Information Dispostion Home / Self-Care Prescriptions Prednisone (Prednisone) 20 Mg Tab 1 TAB PO DAILY for 5 Days, #5 TAB Prov: Frederick Nice M.D. 09/11/17 Referrals Zoltan Khan MD (PCP) Forms HOME CARE DOCUMENTATION FORM, IMPORTANT VISIT INFORMATION, WORK / SCHOOL INSTRUCTIONS Patient Instructions My [facility] Additional Instructions You have been examined and treated today on an emergency basis only. This is not a substitute for, or an effort to provide, complete comprehensive medical care. It is impossible to recognize and treat all injuries or illnesses in a single emergency department visit. It is therefore important that you follow up closely with your newscast producer. Call as soon as possible for an appointment. Return for worsening symptoms or if you develop fever, vomiting, or any other concerning symptoms. Problem Qualifiers Additional Impressions: Diarrhea Diarrhea type: unspecified type Qualified Codes: R19.7 - Diarrhea, unspecified Ulcerative colitis Ulcerative colitis location: unspecified ulcerative colitis location Digestive disease complication type: without complication Qualified Codes: K51.90 - Ulcerative colitis, unspecified, without complications
== END 2017-09-11 16:03 | disposition home or self-care (01) ==
LOC: C.EDB 13:31 → C.EDC 16:03
DX: R10.9 Unspecified abdominal pain (principal); R19.7 Diarrhea, unspecified; K51.90 Ulcerative colitis, unspecified, without complications; Z83.3 Family history of diabetes mellitus; Z82.49 Family history of ischemic heart disease and other diseases of the circulatory system; Z88.8 Allergy status to other drugs, medicaments and biological substances

== ENCOUNTER → 2018-02-14 | Outpatient (CLI) | payer OTHER ==
[~2018-02-14] MED LIST changes: +ADAL1INJ
== END | disposition home or self-care (01) ==
LOC: C.LABSPEC 16:05
PROVIDERS: ATTEND Obstetrics & Gynecology
DX: Z34.83 Encounter for supervision of other normal pregnancy, third trimester (principal)

== ENCOUNTER 2018-12-20 04:03 | Inpatient (IN) ==
[2018-12-20 04:45] LABS: Basophils # (auto) 0.05 K/uL (0-0.2); Basophils % (auto) 0.4 %; Eosinophils # (auto) 0.22 K/uL (0-0.5); Eosinophils % (auto) 1.8 %; Hematocrit (blood only) 40.4 % (37-47); Hemoglobin 13.4 g/dL (12.0-16.0); Immature Granulocytes # (auto) 0.07 K/uL (0.00-0.02); Immature Granulocytes % (auto) 0.6 %; Lymphocytes # (auto) 4.33 K/uL (1.2-3.4); Mean Corpuscular Hgb Conc 33.2 g/dL (32-36); Mean Corpuscular Volume 85.4 fL (80-100); Mean Platelet Volume 10.2 fL (7.4-10.4); Monocytes # (auto) 0.57 K/uL (0.11-0.59); Monocytes % (auto) 4.6 %; Neutrophils # (auto) 7.14 K/uL (1.4-6.5); Neutrophils % (auto) 57.6 %; Platelet Count 332 K/uL (130-400); RDW Standard Deviation 46.9 fL (36.4-46.3); Red Blood Count 4.73 M/uL (4.2-5.4); White Blood Count 12.38 K/uL (4.8-10.8)
[2018-12-20] MEDS ORDERED: SODIUM CHLORIDE 0.9% 1000ML 1,000 ML IV ONE (04:48)
[2018-12-20 05:05] LABS: Albumin Globulin Ratio 0.8 (0.9-2); Albumin Level 3.9 gm/dl (3.4-5.0); BUN Creatinine Ratio 15.7 (10-20); Bilirubin,Total 0.2 mg/dl (0.2-1); Calcium 8.9 mg/dl (8.5-10.1); Creatinine Clr Calc Pharmacy 135.6 ml/min; Est GFR (African American) 138.9; Est GFR (Non-African American) 119.9; Globulin 5.2 gm/dl (2.5-4.0); Total Protein 9.1 gm/dl (6.4-8.2)
[2018-12-20 05:06] LABS: Acetaminophen < 2 ug/ml (10-30); Salicylate 2.6 mg/dl (2.8-20)
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
[2018-12-20 06:51] LABS: Appearance Urine Cloudy (Clear); Bacteria Urine Automated 1+ (Negative); Bilirubin Urine Negative (Negative); Blood Urine Negative (Negative); Color Urine Yellow; Epithelial Cell Urine Auto >30 /lpf (0-5); Glucose Urine UA Negative (Negative); Ketones Urine Negative (Negative); Leukocyte Esterase Urine 1+ (Negative); Nitrite Urine Negative (Negative); Protein Urine Negative (Negative); RBC Urine Automated 0-4 /hpf (0-4); Specific Gravity Urine 1.021 (1.000-1.030); Urobilinogen Urine Negative (Negative)
[2018-12-20 07:06] LABS: Amphetamines+Metham, Urine Neg (Neg); Barbiturates, Urine Neg (Neg); Benzodiazepine, Urine Pos (Neg); Cocaine, Urine Neg (Neg); MDMA (Ecstacy), Urine Neg (Neg); Methadone, Urine Neg (Neg); Opiate, Urine Neg (Neg); Phencyclidine, Urine Neg (Neg)
[2018-12-20] MEDS: SODIUM CHLORIDE 0.9% 1000ML 1,000 ML IV SCH ×2 (09:17→16:47)
[2018-12-20] MEDS ORDERED: ONDANSETRON 4 MG OD TAB PO PRN (10:03)
[2018-12-20] MEDS: ACETAMINOPHEN 500 MG TAB PO PRN ×2 (10:28→22:01)
[2018-12-20] MEDS: LORazepam 0.5 MG TAB PO SCH (20:27)
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
[2018-12-20] MEDS: THIAMINE HCL 100 MG TAB PO SCH (22:01)
[2018-12-21 06:41] LABS: Hematocrit (blood only) 36.6 % (37-47); Hemoglobin 11.8 g/dL (12.0-16.0); Mean Corpuscular Hgb Conc 32.2 g/dL (32-36); Mean Corpuscular Volume 85.5 fL (80-100); Platelet Count 267 K/uL (130-400); RDW Coefficient of Variation 15.2 % (11.5-14.5); RDW Standard Deviation 47.5 fL (36.4-46.3); Red Blood Count 4.28 M/uL (4.2-5.4); White Blood Count 10.28 K/uL (4.8-10.8)
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
[2018-12-21 07:09] LABS: BUN Creatinine Ratio 19.3 (10-20); Calcium 8.7 mg/dl (8.5-10.1); Creatinine Clr Calc Pharmacy 157.7 ml/min; Est GFR (African American) 146.4; Est GFR (Non-African American) 126.3; Potassium 3.7 mmol/L (3.5-5.1)
[2018-12-21] MEDS: THIAMINE HCL 100 MG TAB PO SCH ×2 (08:42→21:00)
[2018-12-21] MEDS: FOLIC ACID 1 MG TAB PO SCH (08:42)
[2018-12-21] MEDS: CEROVITE ADV FORMULA TAB PO SCH (08:42)
--- NOTE | 2018-12-21 14:43 | Hospitalist Progress Note ---
Date of Service December 21, 2018 Assessment & Plan (1) Intentional overdose of selective serotonin reuptake inhibitor (SSRI): ingested 45 tablets of Zoloft Ingestion occurred on 12/19 late at night, admitted 12/20 in the morning she was drinking heavily at the time She had evidence of serotonin excess including sinus tachycardia, anxiety, flushed skin, dilated pupils, and tremors. 1/2 life is about 24-30 hours. Thus, most of the drug will be metabolized within 5 days. Poison control was contacted by the ER attending - supportive care advised. If symptoms worsen consider Periacton. Continue 1:1 observation. vitals are stable, less tachycardia, no nausea will be medically clear in the morning on 12/22 (2) Depression: patient describes feeling overwhelmed with stressors in her life specifically her children (age 9 months and 4 years) and her relationship with her boyfriend of 8 years, he is father of children she just felt like she could not deal with the stress anymore she denies wanting to end her life, she just wanted her boyfriend to start listening to her he was accusing her of cheating on him which she says is not true appreciate psychiatry consultation, they recommend inpatient treatment patient agrees to go voluntarily will d/c from medical side on 12/22 (3) Ulcerative colitis: with colostomy on chronic humira stable (4) Colostomy in place: diarrhea is due to serotonin excess improving (5) Tachycardia: due to SSRI overdose continue tele, HR lower now between 90-100 (6) Insomnia: ativan 0.5mg HS PRN repeat as needed (7) Mother currently breast-feeding: spoke with pharmacy -- since 1/2 life is 24-30 hours it is likely prudent for mother to pump and discard her breast milk for 48 hours By Saturday she should be able to breastfeed and/or pump and give her breast milk to her 9mo. breastpump ordered for mom through our nursery (8) Alcohol abuse: Drinks etoh 2-3x's each week. Seems to be using alcohol to cope with multiple stressors. Thiamine, folic acid, MVI. (9) DVT prophylaxis: DVT risk, despite her young age, is actually higher than most due to her IBD. patient ambulating in the room spent 40 minutes with the patient today, 25 minutes speaking with her directly about the whole situation Subjective patient feeling a little better today, no nausea was able to sleep better last night after some Ativan, slept a little better this afternoon as well she is agreeable to going voluntary inpatient psychiatry discussed that she would not be medically clear until about 48 hours into her stay which would be morning of 12/22 she was a little upset because she wants the 72 hours to start as soon as possible so she can get back to her children she voices that she did not want to kill herself, that her children mean the world to her she was so distraught that her boyfriend accused her of cheating on him and she just wanted him to listen to her her main concern is her children she says that her son is with family in [place] and her grandmother is coming to take care of her 9 month old medically speaking, her HR is in the 90-100 range, no longer feels nauseated labs are stable Review of Systems Review of Systems: All systems reviewed & are unremarkable except as noted in HPI & below Constitutional: + fatigue and + weakness; no fever, no chills and no sweats Respiratory: no cough and no dyspnea Cardiovascular: no chest pain Gastrointestinal: no abdominal pain, no nausea, no vomiting, no constipation and no diarrhea/loose stools Psychiatric: + depression and + anxiety; no suicidal ideation, no homicidal ideation, no paranoia and no hallucinations Physical Exam Constitutional: WD/WN, vitals as above Eyes: PERRL, conjunctivae normal, anicteric sclerae ENMT: external ear and nose normal, oropharynx normal Neck: trachea midline, no thyromegaly Respiratory: normal respiratory effort, lungs clear to auscultation Cardiovascular: RRR, no murmur, no edema Gastrointestinal (Abdomen): normal bowel sounds, soft, nontender, no hepatosplenomegaly Musculoskeletal: no cyanosis or clubbing, extremities motor strength 5/5 Skin: no rashes, warm and dry Neurologic: patellar DTR's 2+ bilat, sensation intact and PERRL, EOMI, accommodation nl, no face palsy, no dysarthria Psychiatric: Orientation: alert and oriented x 3 Affect: + depressed affect, + anxious affect and + tearful affect Lymphatic: no cervical or axillary lymphadenopathy Results & Data Vital Signs (Past 12 Hours) Vital Signs Temp Pulse Pulse Resp BP BP Pulse Ox 12/21/18 12:35 36.6 C 90 16 114/66 97 12/21/18 08:51 36.7 C 96 H 17 137/81 94 12/21/18 07:38 72 12/21/18 04:54 36.3 C L 70 20 118/75 97 Laboratory Results Laboratory Results - last 24 hr 12/21/18 12/21/18 06:15 06:15 WBC 10.28 RBC 4.28 Hgb 11.8 L Hct 36.6 L MCV 85.5 MCH 27.6 MCHC 32.2 RDW Std Deviation 47.5 H RDW Coeff of Arlette 15.2 H Plt Count 267 MPV 10.0 Sodium 142 Potassium 3.7 Chloride 109 H Carbon Dioxide 28 Anion Gap 5.0 BUN 11 Creatinine 0.58 L Est Cr Clr Drug Dosing 157.7 Est GFR ( Amer) 146.4 Est GFR (Non-Af Amer) 126.3 BUN/Creatinine Ratio 19.3 Glucose 89 Calcium 8.7 Medications Administered Current Inpatient Medications Acetaminophen (Tylenol) 1,000 mg PO Q6H PRN PRN Reason: Pain Stop: 12/22/18 10:02 Last Admin: 12/20/18 22:01 Dose: 1,000 mg Documented by: Folic Acid (Folvite) 1 mg PO QAM [facility] Stop: 01/20/19 08:59 Last Admin: 12/21/18 08:42 Dose: 1 mg Documented by: Lorazepam (Ativan) 0.5 mg PO HS [facility] Stop: 01/19/19 20:59 Last Admin: 12/20/18 20:27 Dose: 0.5 mg Documented by: Multivitamins/Minerals (Multivitamin W/ Minerals Tab) 1 tab PO QAM [facility] Stop: 01/20/19 08:59 Last Admin: 12/21/18 08:42 Dose: 1 tab Documented by: Ondansetron HCl (Zofran Odt) 4 mg PO Q6H PRN PRN Reason: Nausea And Vomiting Stop: 12/22/18 10:02 Thiamine HCl (Vitamin B-1) 200 mg PO BID [facility] Stop: 01/19/19 21:14 Last Admin: 12/21/18 08:42 Dose: 200 mg Documented by: PG Care Time/CCT Total # of Minutes Spent Total Time Spent with Patient: Total time spent is greater than 50% in coordination of care (as documented) at patient's floor/unit and/or counseling patient: (1) Insomnia Insomnia type: unspecified Qualified Code(s): G47.00 - Insomnia, unspecified (2) Depression Depression Type: unspecified Qualified Code(s): F32.9 - Major depressive disorder, single episode, unspecified (3) Intentional overdose of selective serotonin reuptake inhibitor (SSRI) Encounter type: initial encounter Qualified Code(s): T43.222A - Poisoning by selective serotonin reuptake inhibitors, intentional self-harm, initial encounter (4) Ulcerative colitis Digestive disease complication type: unspecified complication Ulcerative colitis location: unspecified ulcerative colitis location Qualified Code(s): K51.919 - Ulcerative colitis, unspecified with unspecified complications
[2018-12-21 20:53] LABS: 7-Aminoclonaz, Confirm NEGATIVE NG/ML (CUTOFF=25); Hydro-Alp Ur, GC/MS NEGATIVE NG/ML (CUTOFF=25); Hydroxyethylflurazepam, Conf NEGATIVE NG/ML (CUTOFF=50); Hydroxytriazolam NEGATIVE NG/ML (CUTOFF=50); Lorazepam, Ur GC/MS NEGATIVE NG/ML (CUTOFF=50); Nordiazepam, Confirm NEGATIVE NG/ML (CUTOFF=50); Oxazepam Ur, GC/MS NEGATIVE NG/ML (CUTOFF=50); Temazepam, Confirm NEGATIVE NG/ML (CUTOFF=50)
[2018-12-21] MEDS: ACETAMINOPHEN 500 MG TAB PO PRN (21:00)
[2018-12-21] MEDS: LORazepam 0.5 MG TAB PO SCH ×2 (21:00→22:30)
[2018-12-21] MEDS ORDERED: LORazepam 0.5 MG/1 ML VIAL IV STA (22:35)
[2018-12-22] MEDS: CEROVITE ADV FORMULA TAB PO SCH (07:42)
[2018-12-22] MEDS: THIAMINE HCL 100 MG TAB PO SCH (07:42)
[2018-12-22] MEDS: FOLIC ACID 1 MG TAB PO SCH (07:42)
--- NOTE | 2018-12-22 09:30 | Discharge Summary ---
Date of Service December 22, 2018 Admission HPI Per Admitting Provider Per admission H&P: 28 y/o F hx UC, depression, colostomy due to abdominal trauma in childhood. The pt had an argument with her boyfriend earlier in the day. She proceeded to drink alcohol in excess and then took 45, 100mg Zoloft tablets. Her boyfriend called EMS upon finding this out. She does not have any related symptoms on arrival. She was tachycardic with a heart rate of approximately 120 on admission. She also reports that herself and her 2 kids have had a flu-like illness this past week. Her ETOH level is 120. Labs are otherwise unremarkable. The pt states that she did not necessarily want to commit suicide and feels she made a poor decision on impulse. She would like to commit herself to the mental health unit voluntarily. PMH: 1) Abdominal trauma during childhood leading to a colostomy bag 2) R Hip dysplasia 3) UC - treated with Humira 4) Depression Surgical: 1) Multiple abdominal surgeries 2) C section x 2 Social: Smokes 3-5 cigarettes daily. Drinks alcohol on occasion twice a week but denies excess intake. She has 2 children. Her mother is currently hospitalized in [place] due to an intentional overdose. Family: States parents are alive and well. Mother with depression and recent suicide attempt. On psychiatric assessment this morning, patient appears to be improving regarding symptoms of serotonin toxicity. Vitals improving, tachycardia resolved. She reports positive effect from 0.5 mg of Ativan last night for sleep. She describes still feeling tired and like her thoughts are racing and anxious however she denies active gastrointestinal upset, sweats, jerman lucinations, tremor, palpitations. She admits that her overdose was intentional but states that it occurred in the setting of an acute argument with her boyfriend which she describes as a result of him believing that she was cheating on him after coming home intoxicated. She alludes to the fact that she has given him reasons to think such and also reports that she has been drinking more frequently and at higher quantities in recent weeks; now drinking 4-5 beers at a time 3-4 times per week which is up from 1-2 beers approximately 3 times a week at baseline. She believes increased alcohol use may be a means to cope with feelings of pressure and loneliness. She describes her primary responsibility to her children, a 9-month-old and a 4-year-old child. She also feels pressure to maintain the household as her boyfriend works long hours and does little around the house. She states "eventually I freaked out and I think I took the pills because he would not listen to me. I do not think I thought I was going to . Presently she endorses feeling glad to be alive denies ongoing suicidal ideation or self-injurious impulses. She denies that she has recently been contemplating suicide or self injury. She denies any thoughts of harm towards her children or her boyfriend or anyone else. She does believe that her mood baseline has been decompensated following the of her second child however and had been positive following dose escalation of the Zoloft by her outpatient psychiatrist. She vacillates between telling me that things were feeling very good and feeling under too much pressure prior to the argument and overdose. She acknowledges a history of depression and there is a significant family history, particularly in her mother, who has had innumerable psychiatric admissions for bipolar disorder and borderline personality disorder with multiple self-harm attempts. Notably her mother is presently admitted for an overdose at another hospital however she denies that this was much of a stressor she has become sort of numb to it. She is disappointed in herself she does not want to be like her mother. "I want to be the perfect mother for my children." She denies history of mood cycling or obvious symptoms of bipolarity in herself historically. She denies symptoms of psychosis. Unfortunately she expresses ambivalence about her mental health admission at this point as she is feeling more eager to return home. She does agree that she needs more support. Admission Exam Per Admitting Provider Physical Exam Physical Exam: General: AAO x 3, no distress ENT: No erythema or exudates, no thrush Eyes: JULIA, EOMI Head and neck: Normocephalic, atraumatic, No JVD, neck is supple. Chest/heart: Nontender, S1,2, tachy, reg, no murmurs, no gallops Lungs: CTAB, no wheezing or crackles Abdomen: Colostomy bag present Neuro: AAO x 3, speech is clear, no unilateral weakness or loss of sensation, coordination intact Musculoskeletal: No joint inflammation, muscle tenderness, FROM Skin: No acute rashes or ulcers Extremities: No clubbing, cyanosis, edema Principal Diagnosis Intentional overdose of sertroline Discharge Exam Constitutional WD/WN, vitals as above Eyes PERRL, conjunctivae normal, anicteric sclerae ENMT external ear and nose normal, oropharynx normal Neck trachea midline, no thyromegaly Respiratory normal respiratory effort, lungs clear to auscultation Cardiovascular RRR, no murmur, no edema Gastrointestinal (Abdomen) normal bowel sounds, soft, nontender, no hepatosplenomegaly Musculoskeletal no cyanosis or clubbing, extremities motor strength 5/5 Skin no rashes, warm and dry Neurologic patellar DTR's 2+ bilat, sensation intact and PERRL, EOMI, accommodation nl, no face palsy, no dysarthria Psychiatric Orientation: alert and oriented x 3 Affect: + depressed affect and + anxious affect Lymphatic no cervical or axillary lymphadenopathy Discharge Data Allergies Allergy/AdvReac Type Severity Reaction Status Date / Time Sulfa (Sulfonamide Allergy Intermediate HIVES Verified 12/20/18 07:47 Antibiotics) Consultations 12/20/18 05:15 ED Decision to Admit Stat 12/20/18 07:38 Consult Case Management - Discharge Planning Routine Consult Psychiatry Routine Hospital Course (1) Intentional overdose of selective serotonin reuptake inhibitor (SSRI): ingested 45 tablets of Zoloft Ingestion occurred on 12/19 late at night, admitted 12/20 in the morning she was drinking heavily at the time She had evidence of serotonin excess including sinus tachycardia, anxiety, flushed skin, dilated pupils, and tremors. 1/2 life is about 24-30 hours. Thus, most of the drug will be metabolized within 5 days. Poison control was contacted by the ER attending - supportive care advised, tele monitoring placed on 1:1 observation vitals are stable, no tachycardia, no nausea medically clear to go to inpatient psychiatry treatment she will go voluntarily (2) Depression: patient describes feeling overwhelmed with stressors in her life specifically her children (age 9 months and 4 years) and her relationship with her boyfriend of 8 years, he is father of children she just felt like she could not deal with the stress anymore she denies wanting to end her life, she just wanted her boyfriend to start listening to her he was accusing her of cheating on him which she says is not true appreciate psychiatry consultation, they recommend inpatient treatment patient agrees to go voluntarily will d/c from medical side today (3) Ulcerative colitis: with colostomy on chronic humira stable (4) Colostomy in place: diarrhea is due to serotonin excess improving (5) Tachycardia: due to SSRI overdose resolved today (6) Insomnia: ativan 0.5mg HS PRN repeat as needed (7) Mother currently breast-feeding: spoke with pharmacy -- since 1/2 life is 24-30 hours it is likely prudent for mother to pump and discard her breast milk for 48 hours can start using milk after noon today breastpump ordered for mom through our nursery (8) Alcohol abuse: Drinks etoh 2-3x's each week. Seems to be using alcohol to cope with multiple stressors. (9) DVT prophylaxis: DVT risk, despite her young age, is actually higher than most due to her IBD. patient ambulating in the room Total Time Total Time Spent Total Time Spent (In Minutes): 31 minutes Total Time Includes: Examination of the Patient, Discharge Planning, Medication Reconciliation and Communication With Other Providers (discussed with psychiatry) Discharge Plan Discharge Items Patient Disposition: Transfer Behavioral Health Fac Reason For Visit: INTENTIONAL OVERDOSE Discharge Diagnosis: Overdose Depression, anxiety Condition: Good Discharge Goals: Improve disease control and Improve function Activity: Resume your previous activity Follow-up/Referrals: PCP,NO [Primary Care Provider] - Diet: Regular Addtl Provider Instructions: Medications: - ZOLOFT: continue to hold for a few days, can resume when okay with psychiatry - HUMIRA: continue as scheduled Breast feeding: continue to pump and dump today (12/22) until noon, can use breast milk after that time Serotonin overdose: medically stable, no further signs or symptoms of overdose Prescriptions: Continued Humira Pen 40 mg/0.4 mL Pen Injector Kit 1 dose SUBCUT DIRECTED RF: 0 Discontinued sertraline 100 mg Tablet 200 mg PO DAILY RF: 0 Stand-Alone Forms: [facility] Discharge Orders: Discharge Order (Routine); Ordered 12/22/18 Ordered By: Walter Mack Admission Data Admit Date/Time: 12/20/18 06:12 Attending Provider: Walter Mack Admit Provider: Alonzo Toscano Primary Care Provider: PCP,NO Other Providers: Alonzo Toscano ; Katy Owen Service: Telemetry
== END 2018-12-22 13:14 | DRG 918 ==
LOC: ED 04:03 → 2E 06:12 → SUATTDRO 06:12 → 2E 07:20

== ENCOUNTER 2018-12-22 13:14 | Inpatient (IN) ==
[2018-12-22] MEDS ORDERED: SODIUM CHLORIDE 0.65% NA SOLN 45 ML (OCEAN) PRN (14:52)
[2018-12-22] MEDS ORDERED: ALUMINUM/MAGNESIUM SUSP 30 ML UDC PO PRN (14:52)
[2018-12-22] MEDS ORDERED: ACETAMINOPHEN 325 MG TAB PO PRN (14:52)
[2018-12-22] MEDS ORDERED: BISMUTH SUBSALICYLATE PER ML OMNICELL CHARGE PO PRN (14:52)
[2018-12-22] MEDS ORDERED: MAGNESIUM HYDROXIDE SUSP 30 ML UDC PO PRN (14:52)
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
[2018-12-23] MEDS: SERTRALINE HCL 50 MG TABLET PO SCH (10:26)
[2018-12-24] MEDS: SERTRALINE HCL 50 MG TABLET PO SCH (10:50)
--- NOTE | 2018-12-24 11:22 | Psychiatric Progress Note ---
Date of Service December 24, 2018 Impression / Recommendations Impression 28-year-old female who presented after an intentional overdose on #45 - 100mg tablets of sertraline in a suicide attempt in the context of alcohol intoxication and an argument with her boyfriend. She reports this was impulsive, and has denied suicidal thoughts since admission. Although she signed in voluntarily after medical treatment related to her overdose, she submitted a 72-hour notice shortly after admission. Sertraline was restarted at 50 mg and will be titrated as tolerated, with plan to eventually return to her home dose of 200 mg daily. Referrals are sent for therapy appointments, and patient is planning to explore options for childcare in order to prioritize her mental health needs. Her 72-hour notice is up tomorrow evening, and she does not meet criteria for an involuntary commitment. In order to prevent destabilization of condition, we are planning to ensure aftercare arrangements are made prior to discharge to improve safety planning measures. Inpatient psychiatric treatment is medically necessary given relationship stressors, substance use concerns, significant family history of mental health admissions/suicide attempts, intentional impulsive overdose, and request for additional after care supports. Pt remains at high risk of harm to self if discharged prematurely. (1) Intentional overdose of selective serotonin reuptake inhibitor (SSRI): 12/22 - Admitted upon transfer from the medical floor s/p intentional ingestion of #45 - 100mg tablets of sertraline - Admitted to a locked inpatient behavioral health unit, on q15 minute safety checks - Appropriate restart of home medication regimen, adjustments as necessary - Encourage participation in group and recreational therapies - Gather collateral information from outpatient providers - Suggest family meeting to involve outpatient supports in safety planning - Arrange appropriate aftercare 12/23 -Serotonin syndrome symptoms have resolved. -Encourage patient to attend and participate in groups, work on healthy coping skills and a discharge safety plan. (2) Depression: 12/22 - Pt denying any persisting symptoms of serotonin toxicity following overdose - [place] medication regimen prior to admission was effective to manage symptoms - Pt agreeable to restarting sertraline at 50mg tomorrow morning, with plan to titrate as tolerated back to home dose of 200mg daily - Pt reports interest in referrals for individual and couples therapy 12/23 -Sertraline 50 mg every morning restarted today; titrate as tolerated. -Family meeting held with boyfriend today; they agreed to couples counseling. -Patient being referred for individual therapy and case management. -Patient would benefit from part-time childcare, so that she is able to attend necessary medical appointments and care for herself. 12/24 - Titrate sertraline to 100mg total today, consider further titration as tolerated to eventually reach home dose of 200mg - Second of two family meetings with boyfriend this morning, patient pleased with improved communication - Referrals pending for couples and individual therapy, patient attempting to coordinate additional housekeeper child care options (3) Mother currently breast-feedin/24 - Pt oriented to options available. Brought personal pump, which may be used as needed during admission - Pt permitted to breast feed daughter when she is visiting unit - allowed to feed in privacy of her room - Encouraged to attempt feedings outside of group programming times - Verbalized awareness of risks of given prescription medication use and alcohol use (4) Alcohol abuse: 12/22 -Brief intervention was offered and accepted Intervention was greater than 5 min in length. Brief interventions include: 1. Assess Readiness to Quit, 2. Advise: Help Patient to Reduce or Abstain from Alcohol, 3. Agree: Set Specific, Feasible Goals, 4. Assist: Anticipate barriers, Problem-Solving Solutions. Social work to 5. Arrange: Referrals to appropriate treatment. Summary of intervention: The patient is in contemplation stage with regards to transtheoretical model of change. The patient verbalized a desire to decrease alcohol consumption, and was encouraged in this due to depressant effects and risk of interactions with prescription medications. The patient was advised of recommendations for abstinence from alcohol and other abusable substances and to attend substance abuse treatment at discharge, and will be provided with recovery materials to continue to education self on how to cope with their condition without drinking. Pt admits to previous substance abuse treatment, does not feel outpatient D&A treatment is necessary at this time 12/23 -Reviewed risks with alcohol abuse and recommendations for abstinence. Although patient does not feel her alcohol use is a primary concern, she is willing to abstain for the time being she recognizes alcohol is not helping. (5) Ulcerative colitis: 12/22 - Pt has colostomy, assist with care as needed - Continue Humira - taking every other week - Pt permitted to look at phone to determine when next dose is scheduled Inventory Assets Strengths: supportive boyfriend, love for partner/children, willingness for treatment Needs: feeling supported and understood by boyfriend, individual/couples therapy Risk Factors Assessment Male: No : Yes Do You Have Access To A Gun?: No Health Problems: Yes Mental Health Diagnoses: Yes Substance Use Disorders: Yes (alcohol abuse) Previous Attempt: No Family History of Suicide: Yes (mother has had multiple attempts) Previous Psychiatric Hospitalization: Yes (age 16y/o at [facility] for SIB) Hopelessness: No Smoker: No Protective Factors Assessment : No (but with boyfriend for 8 years) Responsible for Young Children: Yes Employed: No Stable Relationships: Yes (together 8 years, but recent relationship stressors) Supportive Family: No Good Rapport with Provider: Yes Interval History Identifying Information TOBIN NASH is a 28-year-old F who currently lives in [place] with her boyfriend and children, has a history of depression and alcohol abuse, and was admitted on 12/22/18 13:14 on a 201 voluntary commitment for a suicide attempt by sertraline overdose. She submitted a 72 hour notice requesting to withdrawal from treatment shortly after admission. Chief Complaint "Feeling a lot better. The meeting went really, really well." Review of Systems Notes Constitutional: denied Cardiovascular: denied Respiratory: denied Gastrointestinal: denied Neurological: denied Psychiatric: denies symptoms other than stated above Total of at least 10 systems reviewed, pertinent positives as above and in HPI. Sleep Information Total Hours of Sleep: 6.5 Sleep Comments: pt given vistaril per rn. pt on q-15 minute checks Meal Information Percent Meal Consumed - Breakfast: 100 Percent Meal Consumed - Lunch: 100 Percent Meal Consumed - Dinner: 100 Subjective Subjective Patient was seen & assessed and interval progress reviewed with Treatment Team. Staff reports the patient is to have a follow-up family meeting with her boyfriend this morning. Patient continues to voice desire for outpatient couples therapy in addition to individual counseling. Patient was seen today to assess progress since admission. She states that she is feeling better and feels that her meeting with her boyfriend went "really, really well." Patient states that they discussed a lot of communication techniques that she feels will be helpful moving forward. She feels she has a better appreciation for their di fferences and communication styles and recognizes that she may be somewhat overpowering to her boyfriend and moments where she demands to talk about her emotions. Patient states she feels as though her boyfriend "really listen to me" is happy to work on continuing therapy on an outpatient basis. Patient recognizes need for 1-2 days a week where she is able to take care of appointments and other household needs without the distraction of caring for her children. Patient is planning to explore resources and talk with her on an outpatient basis in order to find a sitter for the children. Patient reports feeling as though this was a "eye senior courtroom clerk" and to have serious or neglect of her mental health concerns have been. Patient feels as though she is now better able to prioritize her own needs in the long list of expectations she has for herself and managing her home. Patient admits that she feels somewhat embarrassed that [facility] was involved in her case, but states "they also have a lot of really great resources, so I plan to use them." Patient denies any ongoing suicidal thoughts or feelings of hopelessness. Patient denies other needs or concerns at this time. Physical Exam Psychiatric Orientation: alert, oriented x 3 and cooperative Apperance: appropriately dressed, appropriately groomed and appeared stated age Eye Contact: good eye contact Motor Behavior: no abnormal motor movements (Observed while sitting upright in bed) Speech: normal rate/rhythm/volume of speech Affect: euthymic affect Mood: + anxious mood (Mildly so); no depressed mood "I am feeling a lot better, I think this was an eye senior courtroom clerk" Thought Process: goal directed thought process, linear/logical thought process and clear/coherent thought process Thought Content: reality based without delusions; no hopelessness and no worthlessness Suicidal Thoughts: denies suicidal thoughts and denies suicidal plan Homicidal Thoughts: denies homicidal thoughts Hallucinations: no auditory hallucinations and no visual hallucinations Cognition: remote memory grossly intact, attention grossly intact and language grossly intact Estimated Intelligence: consistent with education level Insight: good insight Judgement: good judgement Vital Signs (Past 24 Hours) Last Vital Signs Temp 36.4 C L 12/24/18 06:45 Pulse 97 H 12/24/18 06:46 Resp 16 12/24/18 06:45 BP 107/75 12/24/18 06:46 Results & Data Current Inpatient Medications Current Inpatient Medications: Current Inpatient Medications Acetaminophen (Tylenol) 650 mg PO Q4H PRN PRN Reason: Headache or Minor Fever Stop: 01/21/19 14:51 Al Hydrox/Mg Hydrox/Simethicone (Maalox) 30 ml PO Q4H PRN PRN Reason: GI Upset Stop: 01/21/19 14:51 Bismuth Subsalicylate (Kaopectate) 15 ml PO PRN PRN PRN Reason: Loose Stool Stop: 01/21/19 14:51 Hydroxyzine HCl (Vistaril) 25 mg PO Q4H PRN PRN Reason: Anxiety Stop: 01/21/19 14:51 Last Admin: 12/24/18 02:57 Dose: 25 mg Documented by: Hydroxyzine HCl (Vistaril) 50 mg PO HSZ PRN PRN Reason: Insomnia Stop: 01/21/19 14:51 Last Admin: 12/23/18 21:31 Dose: 50 mg Documented by: Magnesium Hydroxide (Milk Of Magnesia) 30 ml PO DAILY PRN PRN Reason: Heartburn Stop: 01/21/19 14:51 Sertraline HCl (Zoloft) 50 mg PO QAM ALEX Stop: 01/22/19 08:59 Last Admin: 12/24/18 10:50 Dose: 50 mg Documented by: Sodium Chloride (Hale Nasal) 1 - 2 sprays NA PRN PRN PRN Reason: Nasal Dryness/Congestion Stop: 01/21/19 14:51 Post Discharge Appointments Primary Care Physician Name Of Family Doctor: Does not want a PCP appt at this time Psychiatrist Name of Psychiatrist: [facility] Rick Azar Psychiatrist's Date of Appointment with Psychiatrist: 12/29/18 Time of Appointment with Psychiatrist: 10:00 a.m. Psychiatric Appointment Comment: [address] [place] [id number] Therapist Name of Therapist: Delroy Abraham LPC Internet Technology Manager Name of Internet Technology Manager: [employer] Phone Number for Internet Technology Manager: [phone] Case Management Appointment Comment: [address] [facility], [address], [place], [place] Other #1: Name of Aftercare Appointment: [facility] - Dr. Bermudez Phone Number of Aftercare Appointment: [phone] Date of Aftercare Appointment: 12/29/18 Time of Aftercare Appointment: 2:00 p.m. Aftercare Appointment Comment: [address] [place] [address] #2: Name of Aftercare Appointment: [facility] Phone Number of Aftercare Appointment: Contact Information Discharge Discharge [address]: [address] [place] [address] CPT Code CPT Code 61603 (1) Depression Depression Type: unspecified Qualified Code(s): F32.9 - Major depressive disorder, single episode, unspecified (2) Intentional overdose of selective serotonin reuptake inhibitor (SSRI) Encounter type: initial encounter Qualified Code(s): T43.222A - Poisoning by selective serotonin reuptake inhibitors, intentional self-harm, initial en counter (3) Ulcerative colitis Digestive disease complication type: unspecified complication Ulcerative colitis location: unspecified ulcerative colitis location Qualified Code(s): K51.919 - Ulcerative colitis, unspecified with unspecified complications
[2018-12-24] MEDS ORDERED: COUGH DROP (SUGAR FREE) LOZ 24 LOZ/1 BOX BUCCAL PRN (11:54)
[2018-12-24] MEDS ORDERED: SERTRALINE HCL 50 MG TABLET PO ONE (13:30)
[2018-12-24] MEDS: guaiFENesin 600 MG TABCR PO PRN (14:33)
[2018-12-25 06:35] VITALS: TEMP 97.9
--- NOTE | 2018-12-25 08:44 | Discharge Summary ---
Date of Service December 25, 2018 History of Present Illness Per Malena ROYAL: Patient admitted medically on 12/20/18 following an intentional overdose of #45 tablets of 100mg sertraline. Psychiatric consultation was completed on 12/21/18, during which patient admitted to impulsively taking the excess medication during an argument with her boyfriend. Inpatient psychiatric hospitalization was recommended, and after discussion with family the patient was agreeable to a voluntary admission. Pt had endorsed increased loneliness and pressure to keep up with her home and caring for her two children. It was reported she felt she was getting little support from her boyfriend, who works long hours to provide for the family. Pt had admitted to impulsively taking the overdose, "because he would not listen to me. I do not think I thought I was going to ." Pt resents the action now. Pt's home dose of sertraline had been increased to 200mg, but she had been ambivalent about how beneficial she felt this dose change was. On assessment today, the patient admits to being anxious but recognizing the need for some additional outpatient supports. Pt begins interview by verbalizing desire for couples and individual therapy, as well as possibly a mental health case manager. Pt is feels beyond this, she does not require treatment and would like to go home. She reports her admission is related to an overdose which was impulsive and reportedly out of character for her. Pt states "I'm sure you know what happened by now. I had a little too much to drink, we don't normally fight. This wasn't typical for us." Pt states that she has recognized communication issues in her relationship with her boyfriend, but feels they have been escalating. She states she takes responsibility for her response to their argument, but feels she is not receiving support from her boyfriend that she would desire. Pt states, "we won't get anywhere if we don't do couples therapy." Pt states that she has been with her boyfriend for 8 years, and they have two children together. She states she was upset at the way her accused her of cheating, "we've been through a lot together, how could he bring it up like that?" Pt admits to feeling overwhelmed recently with the stress of caring for her children and taking care of the home, but denies suicidal ideation. She did not desire to end her life by taking the medications. Pt does not endorse any consistent depressive symptoms, and states she was feeling rather decent prior to admission in regard to mood. She admits to some episodes of "I was really sad and cried all the time" for two months , but feels these symptoms have resolved. Her dose of sertraline was increased to 200mg in the past 2 weeks to target increased agitation related to menses - and she states she believes it to be beneficial. Pt denies significant symptoms of anxiety, de nying known history of panic attacks. Pt denies SI, HI, SIB, A/V hallucinations, paranoia, nolvia/hypomania, other symptoms more suggestive of a bipolar presentation, OCD, eating disorder, and other specific psychiatric symptoms. On my assessment today she was seen with Dr. Maida Esposito. She reports "the main issue is me and Eugenio," her boyfriend and father of her children, and they just had a family meeting and agreed to couples' counseling. She reports ongoing anxiety due to "a lot happening in my life right now," but mood has improved and she denies SI. She denies serotonin syndrome symptoms including shakiness, tremor, nausea, diarrhea. Sertraline was restarted this morning and she tolerated it well. She admits alcohol use played a role in her suicide attempt, but says it's "not the primary focus." She does agree to abstain for the time being, as recognizes it's not helpful. She just had a visit with her 9 mo old infant and says it is hard for her to be here in the hospital as she misses her children. Her grandmother is caring for her baby currently. She does think it will be helpful to take some time here to think about her own needs, as she usually focuses only on her childrens' needs. Discussed her daily schedule and that boyfriend works 13 hours/day, so she is responsible for all of the childcare and housework. She is interested in looking at options for some extra childcare. She reports numerous stressors and feels both she and her are chronically overwhelmed. She is not currently using contraception, although notes she does not want to get . She has not followed up with her OB since she gave 9 months ago. Physical Exam Psychiatric Orientation: alert, oriented x 3 and cooperative Apperance: appropriately dressed, appropriately groomed and appeared stated age Eye Contact: good eye contact Motor Behavior: no abnormal motor movements (observed while seated on bed) Speech: normal rate/rhythm/volume of speech Affect: euthymic affect and + anxious affect (mildly) Mood: + anxious mood ("A little bit anxious, but nothing bad.") Thought Process: goal directed thought process, linear/logical thought process and clear/coherent thought process Thought Content: reality based without delusions Suicidal Thoughts: denies suicidal thoughts and denies suicidal plan Homicidal Thoughts: denies homicidal thoughts Hallucinations: no auditory hallucinations and no visual hallucinations Cognition: remote memory grossly intact, attention grossly intact and language grossly intact Estimated Intelligence: consistent with education level Insight: good insight Judgement: good judgement Vital Signs (Past 24 Hours) Last Vital Signs Temp 36.6 C 12/25/18 06:34 Pulse 86 12/25/18 06:35 Resp 16 12/25/18 06:34 BP 110/77 12/25/18 06:35 Principal Diagnosis Major depressive disorder, recurrent; alcohol abuse; s/p intentional overdose Psychiatric Data 28-year-old female admitted medically on 12/20/18 following an intentional overdose of #45 tablets of 100mg sertraline. Pt reported the overdose occurred in the context of an argument with her boyfriend, and admits that she had consumed a large amount of alcohol prior to the argument as well. Pt reported the combination of communication difficulties and her alcohol use had attributed to poor judgement, and denied any considerable feelings of anxiety, depression, or suicidality prior to the argument. Despite this, patient was recommended for inpatient treatment following medical clearance and was voluntarily admitted for psychiatric treatment on 12/22/18. Shortly after transfer, the patient signed her 72-hour notice requesting to leave treatment. This request was to on 12/25/18 at 1740. Patient's sertraline was held following her overdose, and was restarted at 50mg once signs of serotonin toxicity had resolved. At time of discharge, her dose was titrated to 100mg daily. Pt was given instructions at discharge to complete titration to her home dose of 200mg on an outpatient basis. She was recommended to increase to 150mg x 2-3 days, then increasing to 200mg if now side effects. Pt is agreeable to returning to her established psychiatric prescriber. She was willing for referrals for both individual and couples counseling, as communication concerns between the patient and her boyfriend were identified to be a large stressor. Pt was also able to recognize her need for occasional child-care, to allow her to be compliant with appointments and to complete other tasks without interruption from her two young children. Pt is aware that [facility] is now involved, as the children were home at the time of her overdose. She views this in a positive way, and is hoping to utilize them as a resource to improve parenting skills and have additional support in her home. Pt also requested referral for a mental health case manager, which was completed as well. Luisa invited her boyfriend to participate in a family meeting, and they were able to discuss differences in their communication styles and recognize some ways in which they could communicate more effectively with each other. Pt is hoping to continue this on an outpatient basis. The patient has denied SI since her admission, feeling embarrassed about her overdose and ashamed. She was able to process this and feels her mood has improved as well. Pt denies SI, SIB, and is future oriented during assessments on the unit. She was able to complete a safety plan prior to discharge, which was personally reviewed by this provider. Pt is requesting discharge at this time, and it seems that her risk of harm to self is no longer acute. Based on progress outlined above, it seems appropriate for the patient to be discharged home with recommendation for ongoing outpatient psychiatric services. Pt is agreeable with discharge plan reviewed. Day of Discharge Assessment Patient's case was reviewed and discussed with nursing and social work during morning report. Staff report the patient has continued to engaged in treatment on the unit. Referrals have been made for both individual and couple's counseling, awaiting response and will ideally be scheduled before discharge. Pt has not rescinded her 72-hour notice, which expires this evening at 1740. Pt was seen today to assess progress since admission. Pt states she is doing well and continues to desire discharge today. She shares with this provider some plans to assist her in easing back into her home routine, as she is somewhat anxious about this. We discussed potential plan to prioritize tasks in order of importance to allow patient to complete what is necessary, but feel comfortable pushing off tasks that may by trivial and have potential to increase stress. Pt shares that an unknown support has also arranged for someone to come and clean her home prior to her discharge, and she is grateful for this. Pt continues to desire to arrange exceptional children's teacher two days a week to allow her to prioritize her mental health and complete other tasks outside of the home. Pt continues to feel her communication with her boyfriend is improving and is looking forward to continuing to work on this. Pt denies any specific concerns regarding discharge. She denies SI, and is able to contract for safety outside of the hospital setting. Pt is future oriented in conversation and is very much looking forward to seeing her children. Pt is requesting discharge this afternoon and is planning to be picked up by her . Pt was encouraged to reach out with any other questions or concerns prior to discharge. Based on review of the patient's case and her current presentation, the patient's risk of harm to self has been reduced. It seems appropriate for patient to continue mental health treatment on an outpatient basis, as this is now the least restrictive setting to manage her symptoms. ROS: Constitutional: denied Cardiovascular: denied Respiratory: reports ongoing cough Gastrointestinal: denied Neurological: denied Psychiatric: denies symptoms other than stated above Total of at least 10 systems reviewed, pertinent positives as above and in HPI. Transition of Care Transition Of Care Record: was reviewed with the patient Advance Directives Advance Directives Information Provided: Yes Advance Directives: No Mental Health Advance Directive: No Advance Directives on File: No Living Will: No Power of Tool Coordinator: No Advance Directives Reason:: Declines as Mental Health Visit. Risk Factors Assessment Presenting risk factors reviewed on discharge. Precipitating stressors mitigated by: admission for inpatient psychiatric observation and treatment, appropriate adjustments to medications to target symptoms, attendance of therapeutic treatment groups, development of healthy and effective coping strategies, involvement of outpatient supports, completion of a safety plan, confirmation of extra medications being secured, confirmation of guns and weapons being secured, discussion regarding substance abuse and effects on mental health diagnoses, and education on diagnoses. Pt has demonstrated improvement in condition with regard to resolution of suicidal ideation, improvement in mood, willingness for outpatient psychiatric follow-up, exploration of childcare resources, and open communication with boyfriend. At this time, patient is requesting discharge and is no longer considered to be at acute risk of harm to herself or others. Pt will be discharged with recommendation for ongoing outpatient psychiatric treatment. Male: No : Yes Do You Have Access To A Gun?: No Health Problems: Yes Mental Health Diagnoses: Yes Substance Use Disorders: Yes (alcohol abuse) Previous Attempt: No Family History of Suicide: Yes (mother has had multiple attempts) Previous Psychiatric Hospitalization: Yes (age 16y/o at [facility] for SIB) Hopelessness: No Smoker: No Protective Factors Assessment : No (but with boyfriend for 8 years) Responsible for Young Children: Yes Employed: No Stable Relationships: Yes (together 8 years, but recent relationship stressors) Supportive Family: No Good Rapport with Provider: Yes Tobacco Cessation at Discharge Tobacco Cessation Medication Prescribed at Discharge: Not Applicable/Non-Smoker Total Time Total Time Spent: Greater Than 30 Minutes Total Time Includes: Examination of the patient, Discharge Planning, Medication Reconciliation and Communication with other providers Hospital Course (1) Intentional overdose of selective serotonin reuptake inhibitor (SSRI): 12/22 - Admitted upon transfer from the medical floor s/p intentional ingestion of #45 - 100mg tablets of sertraline - Admitted to a locked inpatient behavioral health unit, on q15 minute safety checks - Appropriate restart of home medication regimen, adjustments as necessary - Encourage participation in group and recreational therapies - Gather collateral information from outpatient providers - Suggest family meeting to involve outpatient supports in safety planning - Arrange appropriate aftercare 12/23 -Serotonin syndrome symptoms have resolved. -Encourage patient to attend and participate in groups, work on healthy coping skills and a discharge safety plan. (2) Depression: 12/22 - Pt denying any persisting symptoms of serotonin toxicity following overdose - [place] medication regimen prior to admission was effective to manage symptoms - Pt agreeable to restarting sertraline at 50mg tomorrow morning, with plan to titrate as tolerated back to home dose of 200mg daily - Pt reports interest in referrals for individual and couples therapy 12/23 -Sertraline 50 mg every morning restarted today; titrate as tolerated. -Family meeting held with boyfriend today; they agreed to couples counseling. -Patient being referred for individual therapy and case management. -Patient would benefit from part-time childcare, so that she is able to attend necessary medical appointments and care for herself. 12/24 - Titrate sertraline to 100mg total today, consider further titration as tolerated to eventually reach home dose of 200mg - Second of two family meetings with boyfriend this morning, patient pleased with improved communication - Referrals pending for couples and individual therapy, patient attempting to coordinate additional exceptional children's teacher options (3) Mother currently breast-feedin/24 - Pt oriented to options available. Brought personal pump, which may be used as needed during admission - Pt permitted to breast feed daughter when she is visiting unit - allowed to feed in privacy of her room - Encouraged to attempt feedings outside of group programming times - Verbalized awareness of risks of given prescription medication use and alcohol use (4) Alcohol abuse: 12/22 -Brief intervention was offered and accepted Intervention was greater than 5 min in length. Brief interventions include: 1. Assess Readiness to Quit, 2. Advise: Help Patient to Reduce or Abstain from Alcohol, 3. Agree: Set Specific, Feasible Goals, 4. Assist: Anticipate barriers, Problem-Solving Solutions. Social work to 5. Arrange: Referrals to appropriate treatment. Summary of intervention: The patient is in contemplation stage with regards to transtheoretical model of change. The patient verbalized a desire to decrease alcohol consumption, and was encouraged in this due to depressant effects and risk of interactions with prescription medications. The patient was advised of recommendations for abstinence from alcohol and other abusable substances and to attend substance abuse treatment at discharge, and will be provided with recovery materials to continue to education self on how to cope with their condition without drinking. Pt admits to previous substance abuse treatment, does not feel outpatient D&A treatment is necessary at this time 12/23 -Reviewed risks with alcohol abuse and recommendations for abstinence. Although patient does not feel her alcohol use is a primary concern, she is willing to abstain for the time being she recognizes alcohol is not helping. (5) Ulcerative colitis: 12/22 - Pt has colostomy, assist with care as needed - Continue Humira - taking every other week - Pt permitted to look at phone to determine when next dose is scheduled Post Discharge Appointments Primary Care Physician Name Of Family Doctor: Does not want a PCP appt at this time Psychiatrist Name of Psychiatrist: [facility] - Dr. Azar Psychiatrist's Date of Appointment with Psychiatrist: 12/29/18 Time of Appointment with Psychiatrist: 10:00 a.m. Psychiatric Appointment Comment: [address] [place] [id number] Therapist Name of Therapist: Delroy Abraham LPC Therapist's Therapy Appointment Comment: [address] , [place] [address] Early Morning Name of Early Morning: [facility] Phone Number for Early Morning: [phone] Case Management Appointment Comment: [address], [address], [facility] LELE bran Smoking Cessation Counseling Tobacco Cessation Medication Prescribed at Discharge: Not Applicable/Non-Smoker Other #1: Name of Aftercare Appointment: CASE RESOLUTION SPECIALIST - Dr. Bermudez Phone Number of Aftercare Appointment: [phone] Date of Aftercare Appointment: 12/29/18 Time of Aftercare Appointment: 2:00 p.m. Aftercare Appointment Comment: [address] [facility] #2: Name of Aftercare Appointment: [facility] Phone Number of Aftercare Appointment: Aftercare Appointment Comment: [address], [place] [address] Contact Information Discharge Discharge Address: [address] [place] [address] Discharge Plan Discharge Items Patient Disposition: Home - Self-Care Reason For Visit: DEPRESSIVE DISORDER Discharge Diagnosis: Major depressive disorder Condition: Good Discharge Goals: Decrease discomfort, Improve disease control, Improve function, Increase independence, Learn about illness and Therapeutic intervention Activity: Resume your previous activity Non-emergency contact: Primary Care Provider, Cds Sales Advisor, Psychiatrist and Therapist Call non-emergency contact if: you have any medication questions and your symptoms worsen Follow-up/Referrals: PCP,NO [Primary Care Provider] - Diet: Regular Addtl Provider Instructions: SPECIAL CARE INSTRUCTIONS: 1. Follow through with your scheduled aftercare appointments. If unable to keep an appointment, please call to reschedule. 2. Take your medication only as prescribed. Medication should not be changed or stopped without the approval of your doctor. In the event of worsening symptoms or concerns about side effects, contact your doctor immediately. 3. Utilize new healthy coping skills, anger management skills, and stress management skills learned during your hospitalization. Journal feelings and process them with a support person. Identify stressors or situations that may result in relapse, deterioration or inappropriate behaviors and develop a plan to deal with those issues. 4. If your coping skills are ineffective and you are in crisis, contact your outpatient providers for direction. If unable to reach your providers, please call the CAN HELP LINE AT or go to the closest Emergency Room. 5. Avoid alcohol and un-prescribed drugs. 6. You have been provided with the Mental Health Advance Directives Pamphlet for your review. AFTERCARE APPOINTMENTS: * Please call your insurance company prior to your scheduled appointment to confirm your aftercare providers are covered. Take your insurance information to your appointments. WHO TO CALL AND WHEN: Medical Emergencies: For questions or emergencies related to your hospital stay, please contact the Inpatient Behavioral Health Unit at [phone]. A global sales manager is on-call 21/01 for the Behavioral Health Unit for emergencies At any time you feel your situation is an emergency, you may also call 911 immediately. Your Doctors Instructions noted above were prepared by provider Malena Still PA-C. Prescriptions: New sertraline 100 mg tablet 100 mg PO QAM 30 Days Qty: 60 RF: 0 Continued Humira Pen 40 mg/0.4 mL Pen Injector Kit 1 dose SUBCUT DIRECTED RF: 0 Stand-Alone Forms: [facility] Discharge Orders: Discharge Order (Routine); Ordered 12/25/18 Ordered By: Malena Still Admission Data Admit Date/Time: 12/22/18 13:14 Attending Provider: Maryan Leal Admit Provider: Maryan Leal Primary Care Provider: PCP,NO Service: Psychiatry Other Interventions: PSY Interdisciplinary Discharge Planning Last Done: 12/25/18 11:59 Pending Studies at Discharge: No
[2018-12-25] MEDS ORDERED: SERTRALINE HCL 100 MG TABLET PO SCH (09:00)
[2018-12-25] MEDS: guaiFENesin 600 MG TABCR PO PRN (10:44)
[2018-12-25 12:48] VITALS: BP 138/87; PULSE 92
== END 2018-12-25 15:24 | disposition home or self-care (01) | DRG 885 ==
LOC: 3S 13:14
DX: Z81.8 Family history of other mental and behavioral disorders; Z83.3 Family history of diabetes mellitus; T38.81 Poisoning by, adverse effect of and underdosing of anterior pituitary [adenohypophyseal] hormones; K51.90 Ulcerative colitis, unspecified, without complications; Z93.3 Colostomy status; F33.9 Major depressive disorder, recurrent, unspecified; Y92.009 Unspecified place in unspecified non-institutional (private) residence as the place of occurrence of the external cause; F10.129 Alcohol abuse with intoxication, unspecified; F17.210 Nicotine dependence, cigarettes, uncomplicated

== ENCOUNTER 2020-03-25 15:02 | Inpatient (IN) ==
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
[2020-03-25] MEDS ORDERED: ONDANSETRON INJ 2 MG/ML 2 ML VIAL IV STA (15:36)
[2020-03-25] MEDS ORDERED: MoRPHine SULFATE 4 MG/ML 1 ML CARP\\VIAL IV STA (15:36)
[2020-03-25] MEDS ORDERED: PIPERACILL/TAZOBAC CONSULT ACTIVE PRN (15:36)
[2020-03-25] MEDS ORDERED: PIPERACILLIN/TAZOBACTAM 4.5 GM/120 ML BAG IV ONE (15:36)
[2020-03-25] MEDS ORDERED: ACETAMINOPHEN 1,000 MG/100 ML VIAL IV STA (15:36)
[2020-03-25] MEDS ORDERED: SODIUM CHLORIDE 0.9% 1000ML 1,000 ML IV SCH ×3 (15:45→22:29)
[2020-03-25 16:20] LABS: Basophils # (auto) 0.01 K/uL (0-0.2); Basophils % (auto) 0.1 %; Eosinophils # (auto) 0.04 K/uL (0-0.5); Eosinophils % (auto) 0.3 %; Hematocrit (blood only) 38.4 % (37-47); Hemoglobin 12.3 g/dL (12.0-16.0); Immature Granulocytes # (auto) 0.02 K/uL (0.00-0.02); Immature Granulocytes % (auto) 0.1 %; Lymphocytes # (auto) 1.17 K/uL (1.2-3.4); Lymphocytes % (auto) 8.3 %; Mean Corpuscular Hemoglobin 25.8 pg (25-34); Mean Corpuscular Volume 80.7 fL (80-100); Mean Platelet Volume 10.4 fL (7.4-10.4); Monocytes # (auto) 0.88 K/uL (0.11-0.59); Monocytes % (auto) 6.3 %; Neutrophils # (auto) 11.94 K/uL (1.4-6.5); Neutrophils % (auto) 84.9 %; Platelet Count 310 K/uL (130-400); RDW Coefficient of Variation 15.9 % (11.5-14.5); RDW Standard Deviation 47.5 fL (36.4-46.3); Red Blood Count 4.76 M/uL (4.2-5.4); White Blood Count 14.06 K/uL (4.8-10.8)
[2020-03-25 16:33] LABS: Partial Thromboplastin Ratio 1.1; Partial Thromboplastin Time 29.4 Seconds (21.0-31.0); Prothrombin Time 10.6 Seconds (9.0-12.0)
[2020-03-25 16:41] LABS: Albumin Level 3.9 gm/dl (3.4-5.0); BUN Creatinine Ratio 12.6 (10-20); Calcium 9.1 mg/dl (8.5-10.1); Est GFR (African American) 136.7; Est GFR (Non-African American) 117.9; Potassium 3.6 mmol/L (3.5-5.1)
[2020-03-25 16:44] LABS: Albumin Globulin Ratio 0.8 (0.9-2); Bilirubin,Total 0.6 mg/dl (0.2-1); Globulin 4.9 gm/dl (2.5-4.0); Total Protein 8.8 gm/dl (6.4-8.2)
--- NOTE | 2020-03-25 16:57 | XRay Report ---
XR chest 1V portable CLINICAL HISTORY: SEPSIS COMPARISON STUDY: Chest radiograph August 02, 2018. FINDINGS: Lung volumes are normal. Lungs are clear. There is no pneumothorax or pleural effusion. Car diac size is normal. Mediastinal contours are normal. There is no evidence for pulmonary edema. IMPRESSION: No acute cardiopulmonary findings. ACT 112: Negative or not required by law. Electronically signed by: Sridhar Mcneil M.D. 03/25/2020 4:56 PM
[2020-03-25 17:10] LABS: Appearance Urine Cloudy (Clear); Bacteria Urine Automated 4+ (Negative); Bilirubin Urine Negative (Negative); Blood Urine 3+ (Negative); Color Urine Yellow; Epithelial Cell Urine Auto >30 /lpf (0-5); Glucose Urine UA Negative (Negative); Ketones Urine Trace (Negative); Leukocyte Esterase Urine 1+ (Negative); Nitrite Urine Positive (Negative); Protein Urine Negative (Negative); RBC Urine Automated >30 /hpf (0-4); Urobilinogen Urine Negative (Negative)
[2020-03-25] MEDS ORDERED: IOVERSOL 100ml IV ONE (17:53)
--- NOTE | 2020-03-25 18:19 | CT Scan Report ---
CT OF THE ABDOMEN AND PELVIS WITH CONTRAST CLINICAL HISTORY: Abdominal pain and fever. Colostomy. COMPARISON STUDY: CT of the abdomen and pelvis September 24, 2016. Abdominal series August 02, 2018. TECHNIQUE: Following IV administration of 92 mL of Optiray-320, axial images of the abdomen and pelvi s were obtained from the lung bases to the proximal femurs. Images were reviewed in the axial, sagitt al, and coronal planes. IV contrast was administered without complication. Automated exposure contro l was utilized for the study. A dose lowering technique was utilized adhering to the principles of A CHARLY. CT DOSE: 740.03 mGy.cm FINDINGS: Lung bases are unremarkable. No pneumatosis, free air or portal venous gas is present. Ther e is mild splenomegaly. There is possible fatty infiltration of the liver. The adrenal glands, right kidney and pancreas are normal. 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 H owever, there is now heterogeneous enhancement of the left kidney with several hypoenhancing foci. Th ere is perinephric infiltration. There is no hydronephrosis. There is no renal abscess. No ureteral o cular identified although images of the pelvis are degraded by streak artifact from right hip arthrop lasty. There is also hardware the proximal left femur. Descending colostomy is noted with parastomal hernia. There is no bowel obstruction. There is no bowel wall thickening. The appendix is unremarkabl e. IMPRESSION: 1. Findings consistent with left-sided pyelonephritis. No renal abscess. No urinary calculi. 2. Descending colostomy with small parastomal hernia. No bowel obstruction. No bowel wall thickening. Normal appendix. ACT 112: Negative or not required by law. Electronically signed by: Sridhar Mcneil M.D. 03/25/2020 6:18 PM
[2020-03-25] MEDS ORDERED: KETOROLAC 30 MG/ML VIAL IV STA (18:47)
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
[2020-03-25] MEDS ORDERED: cefTRIAXone SODIUM 2,000 MG/70 ML BAG IV STA (20:13)
--- NOTE | 2020-03-25 23:16 | Billing Data ---
Date of Service March 25, 2020 Coding Level of Care Code 38393 Initial Inpt Care Lvl 2
[2020-03-25] MEDS ORDERED: KETOROLAC TROMETHAMINE 15 MG/ML VIAL IV PRN (23:25)
[2020-03-25] MEDS: ACETAMINOPHEN 325 MG TAB PO PRN (23:45)
[2020-03-25] MEDS: MoRPHine SULFATE 2 MG/ML CARP IV PRN (23:45)
[2020-03-25] MEDS: ONDANSETRON INJ 2 MG/ML 2 ML VIAL IV PRN (23:45)
[2020-03-26] MEDS ORDERED: INFLUENZA ADMINISTRATION CHARGE ONE (01:13)
[2020-03-26] MEDS ORDERED: INFLUENZA VIRUS QUAD VACCINE 0.5 ML SYR IM ONE (01:13)
[2020-03-26] MEDS: ENOXAPARIN INJ 40 MG/0.4 ML SYR SQ SCH ×2 (01:48→23:37)
[2020-03-26] MEDS: MoRPHine SULFATE 2 MG/ML CARP IV PRN ×5 (03:43→20:27)
[2020-03-26 07:16] LABS: Basophils # (auto) 0.02 K/uL (0-0.2); Basophils % (auto) 0.1 %; Eosinophils # (auto) 0.03 K/uL (0-0.5); Eosinophils % (auto) 0.2 %; Hematocrit (blood only) 34.1 % (37-47); Hemoglobin 10.7 g/dL (12.0-16.0); Immature Granulocytes # (auto) 0.08 K/uL (0.00-0.02); Immature Granulocytes % (auto) 0.4 %; Lymphocytes # (auto) 2.42 K/uL (1.2-3.4); Lymphocytes % (auto) 12.2 %; Mean Corpuscular Hemoglobin 25.5 pg (25-34); Mean Corpuscular Hgb Conc 31.4 g/dL (32-36); Mean Corpuscular Volume 81.4 fL (80-100); Mean Platelet Volume 10.2 fL (7.4-10.4); Monocytes # (auto) 1.48 K/uL (0.11-0.59); Monocytes % (auto) 7.5 %; Neutrophils # (auto) 15.77 K/uL (1.4-6.5); Neutrophils % (auto) 79.6 %; Platelet Count 250 K/uL (130-400); RDW Coefficient of Variation 16.3 % (11.5-14.5); Red Blood Count 4.19 M/uL (4.2-5.4)
[2020-03-26 07:45] LABS: BUN Creatinine Ratio 13.5 (10-20); Calcium 8.6 mg/dl (8.5-10.1); Creatinine Clr Calc Pharmacy 128.7 ml/min; Est GFR (African American) 132.1; Potassium 3.7 mmol/L (3.5-5.1)
[2020-03-26 07:48] LABS: Albumin Globulin Ratio 0.7 (0.9-2); Bilirubin,Total 0.4 mg/dl (0.2-1); Globulin 4.4 gm/dl (2.5-4.0); Total Protein 7.4 gm/dl (6.4-8.2)
[2020-03-26] MEDS: SERTRALINE HCL 100 MG TABLET PO SCH (08:38)
[2020-03-26] MEDS: ACETAMINOPHEN 325 MG TAB PO PRN ×4 (08:44→22:24)
[2020-03-26] MEDS: DOCUSATE SODIUM 100 MG CAP PO SCH ×2 (09:17→22:48)
[2020-03-26] MEDS: ONDANSETRON INJ 2 MG/ML 2 ML VIAL IV PRN ×2 (09:17→22:51)
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
[2020-03-26] MEDS ORDERED: LIDOCAINE 5% 1 PATCH TD ONE (16:42)
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
[2020-03-26] MEDS ORDERED: cefTRIAXone SODIUM 2,000 MG in DEXTROSE 5% 50 ML IV SCH (20:00)
[2020-03-26] MEDS ORDERED: MoRPHine SULFATE 2 MG/ML CARP IV PRN (23:16)
[2020-03-26] MEDS ORDERED: MoRPHine SULFATE 4 MG/ML 1 ML CARP\\VIAL IV STA (23:16)
[2020-03-27] MEDS ORDERED: MoRPHine SULFATE 4 MG/ML 1 ML CARP\\VIAL IV STA (02:13)
[2020-03-27 06:24] LABS: Basophils # (auto) 0.02 K/uL (0-0.2); Basophils % (auto) 0.2 %; Eosinophils # (auto) 0.16 K/uL (0-0.5); Eosinophils % (auto) 1.3 %; Hematocrit (blood only) 30.9 % (37-47); Hemoglobin 9.5 g/dL (12.0-16.0); Immature Granulocytes # (auto) 0.03 K/uL (0.00-0.02); Immature Granulocytes % (auto) 0.2 %; Lymphocytes # (auto) 3.09 K/uL (1.2-3.4); Lymphocytes % (auto) 24.9 %; Mean Corpuscular Hemoglobin 25.1 pg (25-34); Mean Corpuscular Hgb Conc 30.7 g/dL (32-36); Mean Corpuscular Volume 81.5 fL (80-100); Mean Platelet Volume 9.9 fL (7.4-10.4); Monocytes # (auto) 1.37 K/uL (0.11-0.59); Neutrophils # (auto) 7.75 K/uL (1.4-6.5); Neutrophils % (auto) 62.4 %; Platelet Count 234 K/uL (130-400); RDW Coefficient of Variation 16.4 % (11.5-14.5); RDW Standard Deviation 49.5 fL (36.4-46.3); Red Blood Count 3.79 M/uL (4.2-5.4); White Blood Count 12.42 K/uL (4.8-10.8)
[2020-03-27 06:53] LABS: BUN Creatinine Ratio 10.6 (10-20); Calcium 8.2 mg/dl (8.5-10.1); Creatinine Clr Calc Pharmacy 154.4 ml/min; Est GFR (African American) 143.8; Potassium 3.4 mmol/L (3.5-5.1)
[2020-03-27] MEDS: SERTRALINE HCL 100 MG TABLET PO SCH (08:02)
[2020-03-27] MEDS: ACETAMINOPHEN 325 MG TAB PO PRN (08:05)
[2020-03-27] MEDS: DOCUSATE SODIUM 100 MG CAP PO SCH (08:16)
--- NOTE | 2020-03-27 08:24 | Electrocardiogram Report ---
Test Reason : Blood Pressure : / mmHG Vent. Rate : 115 BPM Atrial Rate : 115 BPM P-R Int : 124 ms QRS Dur : 078 ms QT Int : 320 ms P-R-T Axes : 041 056 049 degrees QTc Int : 442 ms Sinus tachycardia Otherwise normal ECG When compared with ECG of 20-DEC-2018 04:11, No significant change was found Confirmed by Gildardo Merlos ([id number]) on 03/27/2020 8:24:08 AM Referred By: ED Confirmed By:Gildardo Merlos
[2020-03-27] MEDS ORDERED: LACTOBACILLUS ACIDOPHILUS (FLORANEX) TAB PO SCH (12:00)
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
== END 2020-03-27 14:20 | disposition home or self-care (01) | DRG 872 ==
LOC: ED 15:02 → 3W 20:12 → SUATTDRO 20:12 → 3W 21:53